=== PATIENT | female | born 1985 | race Caucasian/White ===

== ENCOUNTER 2020-12-08 16:40 | Emergency (ER) | payer OTHER, SELFPAY ==
[2020-12-08 16:45] VITALS: BP 141/88; PULSE 105; RESP 18; TEMP 36.8; O2SAT 96; BMI 27.1
--- NOTE | 2020-12-08 16:50 | ED_ITS ---
HPI - General Adult General Chief complaint: Allergic Reaction Stated complaint: Allergic reaction Time Seen by Provider: 12/08/20 16:50 Source: patient Mode of arrival: ambulatory Limitations: language barrier History of Present Illness HPI narrative: 35 yo healthy female presenting with allergic reaction after accidentally eating shrimp. 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 She reports her symptoms are palpitations, anxiety and hot ears. She denies SOB, wheezing, face or mouth swelling or tingling. She did not take any medications on arrival. MD complaint: allergic reaction Onset (ago): hour(s) (1) Location: head and chest Radiation: non-radiation Severity: moderate Quality: burning Pain Consistency: constant Relieving factors: cold therapy Exacerbating factors: none Associated symptoms: denies other symptoms Treatments prior to arrival: none Related Data Previous Rx's Medication Instructions Recorded diphenhydramine HCl [Benadryl 50 mg PO Q6H PRN #30 tab 12/08/20 Allergy] Allergies Allergy/AdvReac Type Severity Reaction Status Date / Time aspirin [ASA] Allergy Unknown UNKNOWN Verified 12/08/20 16:45 Penicillins [PENICILLINS] Allergy Unknown UNKNOWN Verified 12/08/20 16:45 Review of Systems Review of Systems: Constitutional: No Fever, No Chills ENT/Mouth: No sore throat, No Rhinorrhea, No Swallowing Difficulty Eyes: No Eye Pain, No Swelling, No Redness Cardiovascular: No Chest Pain, No SOB, +palpitations Respiratory: No Cough, No Sputum, No Wheezing, No dyspnea Gastrointestinal: No Nausea, No Vomiting, No Diarrhea, No abdominal Pain Musculoskeletal: No joint pain, No Myalgias Skin: No Skin Lesions, No rash Neuro: No Weakness, No Numbness, No Dizziness, No Headache Psych: + Anxiety/Panic [facility] Past Medical History Attestation statement: The following information was validated with the patient. Medical History (Updated 12/08/20 @ 18:47 by MORIAH Us) Healthy adult Physical Exam Vital Signs: Vital Signs: Last Vital Signs Temp 98.2 F 12/08/20 16:45 Pulse 86 12/08/20 18:48 Resp 16 12/08/20 18:48 BP 128/71 12/08/20 18:48 Pulse Ox 97 12/08/20 18:48 Body Mass Index 27.1 Appearance: Alert. Oriented X3. Slightly anxious on arrival. Eyes: Pupils equal, round and reactive to light. ENT: Pharynx normal. No mouth or tongue swelling. Left ear with mild erythema and warmth. Neck: Normal inspection. Neck supple. CVS: tachycardic, regular rhythm. Pulses normal. Respiratory: No respiratory distress. Breath sounds normal. No wheezing Skin: Skin warm and dry. Normal skin color. Normal skin turgor. No rashes or u rticaria. Extremities: No lower extremity edema. Neuro: Oriented X 3. Non-focal Course Course Course Narrative: Rapid medical assessment upon arrival to ER - 35 y/o healthy female presenting with acute onset of palpitations, anxiety and redness to ears after accidentally eating shrimp just [employer]. No SOB, wheezing, tongue or facial swelling. Tachycardic on arrival, lungs clear. Benadryl ordered. Reevaluation(s) Reevaluation #1: Symptoms significantly improved after PO benadryl. She was observed in the ER for 2+ hours. Tachycardia improved and she feels much better. She is stable for discharge. She has been counseled. Critical Care Time Critical Care Time Critical Care Time: No Discharge Plan Discharge Clinical Impression: Allergic reaction Qualifiers: Encounter type: initial encounter Qualified Code(s): T78.40XA - Allergy, unspecified, initial encounter Patient Disposition: Home, Self-Care Instructions: General Allergic Reaction (ED) Additional Instructions: DO NOT EAT SHRIMP. If you accidentally consume shrimp, recommend taking 50 mg Benadryl and seeking medical attention. Follow up with your doctor as needed. Prescriptions: New diphenhydramine HCl [Benadryl Allergy] 25 mg tablet 50 mg PO Q6H PRN (Reason: allergic reaction) Qty: 30 RF: 0 Print Language: Salvadorean
[2020-12-08] MEDS: diphenhydrAMINE HCL 25 MG TABLET 50 MG PO (17:32)
[2020-12-08 18:48] VITALS: BP 128/71; PULSE 86; RESP 16; O2SAT 97
== END 2020-12-08 19:06 | disposition home or self-care (01) ==
PROVIDERS: Emergency Provider Emergency Medicine
DX: T78.1XXA Other adverse food reactions, not elsewhere classified, initial encounter (principal); R00.2 Palpitations; I47.9 Paroxysmal tachycardia, unspecified; X58.XXXA Exposure to other specified factors, initial encounter
CPT/HCPCS: 99283; Q0163

== ENCOUNTER 2021-03-27 15:02 | Outpatient (REF) | payer OTHER, SELFPAY ==
[2021-03-27 15:31] LABS: COVID-19 Test Positive (Negative); IDNOW Serial# 55D5AD1C
== END 2021-03-27 15:03 | disposition home or self-care (01) ==
LOC: HO.LAB 15:02
PROVIDERS: Visit Provider Internal Medicine
DX: Z20.822 Contact with and (suspected) exposure to COVID-19 (principal)
CPT/HCPCS: 36415; 87635; C9803

== ENCOUNTER 2021-06-17 09:57 | Outpatient (REF) | payer OTHER, SELFPAY | END 2021-06-17 09:58 | disposition home or self-care (01) | LOC: HO.LAB 09:57 | PROVIDERS: PCP Internal Medicine; Visit Provider Internal Medicine | DX: Z20.822 Contact with and (suspected) exposure to COVID-19 (principal) | CPT/HCPCS: C9803; U0003; U0005 ==

== ENCOUNTER 2021-09-01 17:10 | Outpatient (REF) | payer OTHER, SELFPAY ==
[2021-09-01 17:19] LABS: Appearance Urine CLEAR; Color Urine YELLOW; Glucose Urine UA NEG (NEG); Leukocyte Esterase Urine NEG (NEG); Nitrite Urine NEG (NEG); Specific Gravity - Urine 1.025 (1.005-1.025); UACC Culture Trigger NO; Urine Blood 1+ (NEG); Urine Ketones NEG (NEG); Urine Protein NEG (NEG-TRACE)
[2021-09-01 17:27] LABS: Mucus Urine 1+ /LPF; Squamous Epithelial Cell Urine 1+ /LPF
[2021-09-01 17:29] LABS: Bacteria Urine TRACE /LPF; RBC Urine 0-2 /HPF (0); WBC Urine 0 /HPF (0-4)
== END 2021-09-01 17:11 | disposition home or self-care (01) ==
LOC: HO.LNP 17:10
PROVIDERS: Visit Provider Nurse Practitioner Family
DX: N89.8 Other specified noninflammatory disorders of vagina (principal)
CPT/HCPCS: 81001

== ENCOUNTER 2022-01-18 08:52 | Outpatient (REF) | payer OTHER, SELFPAY ==
[2022-01-18 15:13] LABS: CT PCR NOT DETECTED (Not Detect.); NG PCR NOT DETECTED (Not Detect.)
[2022-01-18 16:23] LABS: BV Int Neg Control Negative (Negative); BV Int Pos Control Positive (Positive)
== END 2022-01-18 08:53 | disposition home or self-care (01) ==
LOC: HO.LAB 08:52
PROVIDERS: PCP Internal Medicine; Visit Provider Obstetrics & Gynecology
DX: B37.3 Candidiasis of vulva and vagina (principal)
CPT/HCPCS: 87480; 87491; 87510; 87591; 87660

== ENCOUNTER 2022-02-05 15:29 | Outpatient (REF) | payer OTHER, SELFPAY ==
[2022-02-06 02:48] LABS: CT PCR NOT DETECTED (Not Detect.); NG PCR NOT DETECTED (Not Detect.)
[2022-02-06 14:21] LABS: BV Int Neg Control Negative (Negative); BV Int Pos Control Positive (Positive)
== END 2022-02-05 15:30 | disposition home or self-care (01) ==
LOC: HO.LAB 15:29
PROVIDERS: PCP Internal Medicine; Visit Provider Obstetrics & Gynecology
DX: B37.3 Candidiasis of vulva and vagina (principal)
CPT/HCPCS: 87480; 87491; 87510; 87591; 87660; 99212

== ENCOUNTER 2022-06-14 09:46 | Outpatient (REF) | payer OTHER, SELFPAY ==
[2022-06-14 12:54] LABS: Syphilis Screen Nonreactive (Nonreactive)
[2022-06-14 15:17] LABS: CT PCR NOT DETECTED (Not Detect.); NG PCR NOT DETECTED (Not Detect.)
[2022-06-15 07:05] LABS: HBsAGNum1 0.27 S/CO (0.00-0.99); HIV AB/AG Nonreactive (Nonreactive); HIV Num 1 0.06 S/CO (0.00-0.99); Hepatitis B Surface Antigen Negative (Negative); ~HepC Num1 0.07 S/CO (0.00-0.79); ~Hepatitis C Antibody Nonreactive (Nonreactive)
[2022-06-15 09:09] LABS: BV Int Neg Control Negative (Negative); BV Int Pos Control Positive (Positive)
== END 2022-06-14 09:47 | disposition home or self-care (01) ==
LOC: HO.LAB 09:46
PROVIDERS: PCP Internal Medicine; Visit Provider Obstetrics & Gynecology
DX: Z01.419 Encounter for gynecological examination (general) (routine) without abnormal findings (principal); Z11.3 Encounter for screening for infections with a predominantly sexual mode of transmission; Z11.4 Encounter for screening for human immunodeficiency virus [HIV]
CPT/HCPCS: 36415; 86780; 86803; 87340; 87389; 87480; 87491; 87510; 87591; 87660

== ENCOUNTER 2023-02-04 12:18 | Outpatient (REF) | payer OTHER, SELFPAY ==
[2023-02-04 14:15] LABS: Rheumatoid Factor < 13.0 IU/mL (<15.0)
== END 2023-02-04 12:19 | disposition home or self-care (01) ==
LOC: HO.LAB 12:18
PROVIDERS: PCP Internal Medicine; Visit Provider Nurse Practitioner Family
DX: M54.50 Low back pain, unspecified (principal)
CPT/HCPCS: 36415; 86431

== ENCOUNTER 2023-06-16 10:16 | Outpatient (AMB) | payer OTHER, SELFPAY ==
--- NOTE | 2023-06-16 10:18 | MHC.OFFVIS ---
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 Electronic Data Processing Auditor Required: Yes Electronic Data Processing Auditor Language: Hearing Officer Name: Nancy FRIEDMAN Information Interpreted: non-clinical & clinical Gift Consultant: Gift Consultant Present (Nancy) Allergies aspirin [ASPIRIN] Allergy (Unknown, Verified 06/16/23 10:22) HIVES, rash penicillin V Allergy (Unknown, Verified 06/16/23 10:22) rash Penicillins [PENICILLINS] Allergy (Unknown, Verified 06/16/23 10:22) HIVES Is last menstrual period known: Yes Last menstrual period: 04/23/23 Post menopausal: No HPI HPI Comments History of Present Illness Details Presenting for annual exam. No complaints. Last Pap/HPV was in 04/08 was negative [facility] Medical History Family history of diabetes mellitus Healthy adult Surgical History Hx of tubal ligation Previous section Family History Father Diabetes Mother Diabetes Hypertension Social History Housing: House Alcohol intake: never Patient Tobacco Use Status: Never used Tobacco e-Cigarette/Vaping Use: Never Used Second Hand Smoke Exposure: No service: No Current occupational status: employed Female Reproductive History Menstrual Age of Menarche: 13 Duration of menses: 6-7 days Date of last menstrual period: 04/23/23 control method: permanent sterilization Total pregnancies: 2 Full term: 2 Number of Living Children: 2 Date of last pap smear: 03/21/19 (negative) Review of Systems Const All systems reviewed & are unremarkable except as noted in HPI and below Card Reports as per HPI Resp Reports as per HPI GI Reports as per HPI and Reports no additional complaints Reports as per HPI Physical Exam Vital Signs: Last Vital Signs BP 106/70 06/16/23 10:19 BMI result Body Mass Index 28.9 Const General: cooperative, healthy appearing and comfortable Chest Chest palpation & inspection: normal inspection of the chest and normal palpation of entire chest wall Breast/axilla inspection: normal inspection of the breasts and normal inspection of the axillae Breast/axilla palpation: normal palpation of the breasts, normal palpation of the axillae and no axillary lymphadenopathy Resp Effort & Inspection: normal respiratory effort Auscultation: clear to auscultation bilaterally Percussion: percussion normal Cardio Palpation: normal PMI Rate: regular rate Rhythm: regular rhythm Heart sounds: no murmurs and no rubs Peripheral pulses: Peripheral pulses 2+ throughout GI Inspection: Yes normal to inspection Palpation (GI): Soft to palpation, nontender, no guarding, not rigid and No hepatosplenomegaly present Percussion: Yes normal to percussion Auscultation: normal bowel sounds Rectal Exam - Female: deferred General: Yes bladder normal to palpation External Female Exam: No lesion Speculum Exam - Vagina: normal appearance of the vagina, normal palpation, normal vaginal discharge and not erythematous Speculum Exam - Cervix: normal appearance of the cervix and normal palpation Bimanual exam- vagina & uterus: normal bimanual exam, normal palpation, uterine size normal, bladder normal to palpation, consistency normal and normal palpation Bimanual Exam- Adnexa, other: normal adnexae, no masses and no tenderness Assessment & Plan Assessment & Plan (1) Well woman exam: Code(s): Z01.419 - Encounter for gynecological examination (general) (routine) without abnormal findings Plan: No Cotesting indicated this year. Counseled the patient about the recommended dietary allowance of 1000 mg of Calcium & 600 IU of vitamin D. The patient was instructed to perform monthly self-breast exams and to schedule an annual exam in a year; All questions answered and the patient verbalized understanding. Instructed the patient to schedule annual exam in a year Coding Level of Care Code Est Pt Prev Care 18-39y(13643) Diagnoses Well woman exam Z01.419
[2023-06-16 10:19] VITALS: BP 106/70; BMI 28.9
== END 2023-06-16 10:33 | disposition home or self-care (01) ==
LOC: HO.HWS 10:16
PROVIDERS: PCP Internal Medicine; Visit Provider Obstetrics & Gynecology
DX: Z01.419 Encounter for gynecological examination (general) (routine) without abnormal findings (principal)
CPT/HCPCS: 99395

== ENCOUNTER → 2023-06-16 10:16 | Outpatient (BNVA) | payer OTHER, SELFPAY | PROVIDERS: PCP Internal Medicine; Visit Provider Obstetrics & Gynecology ==

== ENCOUNTER 2024-01-16 17:41 | Emergency (ER) | payer OTHER, SELFPAY ==
[2024-01-16 17:58] VITALS: BP 164/80; PULSE 96; RESP 18; TEMP 36.7; O2SAT 98; BMI 26.9
--- NOTE | 2024-01-16 18:12 | ED_ITS ---
HPI - Allergic Reaction General Chief complaint: Allergic Reaction Stated complaint: allergic reaction Time Seen by Provider: 01/16/24 17:51 Source: patient Mode of arrival: ambulatory Limitations: no limitations History of Present Illness HPI narrative: 38-year-old female history of allergic reaction patient ate a sesame seeds bar at 17:00 when she started to have throat itching, felt tightness in her throat a nd difficulty breathing with wheezing, patient took 50 mg of Benadryl at home then drove herself to the emergency department, while waiting in the emergency department to be seen symptoms started to improve and resolve, no itching, no rash, no fever, no chills, no CP, no SOB. Related Data Previous Rx's Medication Instructions Recorded epinephrine 0.3 mg/0.3 mL 0.3 mg (0.3 mL) IM Q4H PRN 01/16/24 injection, auto-injector (EpiPen anaphylaxis #2 ea 2-Jas) Allergies Allergy/AdvReac Type Severity Reaction Status Date / Time aspirin [ASPIRIN] Allergy Unknown HIVES, rash Verified 06/16/23 10:22 penicillin V Allergy Unknown rash Verified 06/16/23 10:22 Penicillins [PENICILLINS] Allergy Unknown HIVES Verified 06/16/23 10:22 Review of Systems Review of Systems: All other systems are reviewed and are negative Constitutional: Reports as per HPI and Reports no additional constitutional complaints Eyes: Reports as per HPI and Reports no additional eye complaints Reports system reviewed and no additional complaints, except as documented Cardiovascular: Reports as per HPI and Reports no additional cardiovascular complaints Respiratory: Reports as per HPI and Reports no additional respiratory complaints Gastrointestinal: Reports as per HPI and Reports no additional gastrointestinal complaints Genitourinary: Reports no additional female genitourinary complaints Musculoskeletal: Reports no additional musculoskeletal complaints Skin/Breast: Reports system reviewed and no additional complaints, except as docu Psychiatric: Reports no additional psychiatric complaints Endocrine: Reports no additional endocrine complaints Hematologic/Lymphatic: Reports no additional hematologic/lymphatic complaints Allergic/Immunologic: Reports no additional allergic/immunologic complaints Reports system reviewed and no additional complaints, except as documented and Reports Abnormal speech present [facility] Past Medical History Medical History Family history of diabetes mellitus Healthy adult Surgical History Hx of tubal ligation Previous section Family History Family History Father Diabetes Mother Diabetes Hypertension Social History Social History Housing: House Alcohol intake: never Patient Tobacco Use Status: Never used Tobacco e-Cigarette/Vaping Use: Never Used Second Hand Smoke Exposure: No service: No Current occupational status: employed Physical Exam ED Vital Signs: Vital Signs - 24 hr 01/16/24 17:58 Temperature 98.1 F Pulse Rate 96 Respiratory Rate 18 Blood Pressure 164/80 H Pulse Oximetry 98 Oxygen Delivery Method Room Air BMI result Body Mass Index 26.9 Vital signs have been reviewed and appear to be correct. Blood pressure elevated. Heart rate normal. Respiratory rate normal. Temperature normal. Oxygen saturation normal. Appearance: Alert. Oriented X3. No acute distress. Head: Normal external exam. Normocephalic. Atraumatic. No Stanley signs noted. No raccoon eyes noted Eyes: PERRLA. EOMI. Conjunctiva and sclera normal. Eyelids normal. ENT: TM's Normal. Pharynx normal. Uvula midline. Moist mucous membranes. No trismus noted. No drooling noted. No muffled voice noted. Neck: Normal inspection. Neck supple. FROM. No adenopathy. Thyroid Normal. No meningeal signs. No neck mass noted. CVS: Normal heart rate and rhythm. Heart sound normal. No murmurs noted. Pulses normal throughout. Respiratory: No respiratory distress. Painless inspiration. Breath sounds normal. No wheezes/rales/rhonchi noted. Chest nontender. No accessory muscle usage noted or decreased air movement noted. Abdomen: Soft and nontender. Bowel sounds normal in all 4 quadrants. No distention noted. No organomegaly noted. No visible injury noted. Back: No CVA tenderness. Full range of motion noted. Skin: Skin warm and dry. Normal skin color. Normal skin turgor. No rashes/lesions/lacerations noted. Extremities: No lower extremity edema. Extremities exhibit normal range of motion. Extremities nontender. Neuro: Oriented X 3. Cranial nerve exam: II-XII are grossly intact No motor deficit. No sensory deficit. Reflexes normal. Course Reevaluation(s) Reevaluation #1: Received IV fluids, Solu-Medrol, Pepcid, patient's symptoms has improved, no SOB, no throat tightness. Time: 20:00 Medical Decision Making Differential Diagnosis Differential Diagnoses: The differential diagnosis associated with the presentation includes ( acute allergic reaction, airway compromise, anaphylactic shock.) Admission/Observation Consideration of admission/observation: Escalation of care including admission/observation considered Discharge Plan Discharge Clinical Impression: Allergic reaction Patient Disposition: Home, Self-Care Instructions: General Allergic Reaction (ED) Additional Instructions: Avoid eating any sesame seed in the future and added to your allergy list to avoid. Prescriptions: New epinephrine [EpiPen 2-Jas] 0.3 mg/0.3 mL auto-injector 0.3 mg IM Q4H PRN (Reason: anaphylaxis) Qty: 2 0RF Referrals: Fannie Raya MD [Primary Care Provider] -
[2024-01-16] MEDS: 0.9 % Sodium Chloride 1,000 ML 999 ML IV (18:21)
[2024-01-16] MEDS: methylPREDNISolone Sod Succ 125 MG/2 ML VIAL IVPUSH (18:21)
[2024-01-16] MEDS: Famotidine/PF 20 MG/2 ML VIAL IVPUSH (18:23)
[2024-01-16 20:12] LABS: Influenza A PCR NEGATIVE (Negative); Influenza B PCR NEGATIVE (Negative); Resp Syncy Virus RNA Qual PCR NEGATIVE (Negative); SARS COV2 PCR INHOUSE NEGATIVE (Negative)
[2024-01-16 20:16] VITALS: BP 114/74; PULSE 88; RESP 17; O2SAT 97
== END 2024-01-16 20:39 | disposition home or self-care (01) ==
PROVIDERS: Emergency Provider Emergency Medicine; PCP Internal Medicine
DX: T78.40XA Allergy, unspecified, initial encounter (principal); X58.XXXA Exposure to other specified factors, initial encounter; Z11.52 Encounter for screening for COVID-19; Z20.828 Contact with and (suspected) exposure to other viral communicable diseases; Z88.0 Allergy status to penicillin; Z88.6 Allergy status to analgesic agent
CPT/HCPCS: 0241U; 96374; 96375; 99284; J2930

== ENCOUNTER 2024-06-06 13:50 | Outpatient (REF) | payer OTHER, SELFPAY | END 2024-06-06 13:51 | disposition home or self-care (01) | LOC: HO.LAB 13:50 | PROVIDERS: Absent Provider Internal Medicine; PCP Internal Medicine; Visit Provider Internal Medicine | DX: T78.40XA Allergy, unspecified, initial encounter (principal) | CPT/HCPCS: 36415; 86003 ==

== ENCOUNTER 2024-08-07 11:03 | Outpatient (AMB) | payer OTHER, SELFPAY ==
[2024-08-07 11:24] VITALS: BP 122/74; BMI 25.5
--- NOTE | 2024-08-07 11:24 | A.OFFVIS_ITS ---
Vital Signs 08/07/24 11:24 Height 5 ft 5 in Weight 153 lb BMI 25.5 BP 122/74 Intake Visit Reasons: Annual Donkey Engine Firer/Fireman Required: Yes Donkey Engine Firer/Fireman Language: Machine Stemmer Services: Donkey Engine Firer/Fireman Present (in person) Donkey Engine Firer/Fireman Name: Nancy FRIEDMAN Information Interpreted: non-clinical & clinical Protective Signal Repairer: Protective Signal Repairer Present (Nancy FRIEDMAN) Accompanied by: Self / Same As Patient Allergies aspirin [ASPIRIN] Allergy (Unknown, Verified 08/07/24 11:28) HIVES, rash penicillin V Allergy (Unknown, Verified 08/07/24 11:28) rash Penicillins [PENICILLINS] Allergy (Unknown, Verified 08/07/24 11:28) HIVES Is last menstrual period known: Yes HPI Comments Details: Presenting for annual exam. Complaining of right tender breast lump no associated nipple Last Pap/HPV was negative in 03/09 [facility] Medical History Family history of diabetes mellitus Healthy adult Surgical History Hx of tubal ligation Previous section Family History Father Diabetes Mother Diabetes Hypertension Social History Housing: House Alcohol intake: never Patient Tobacco Use Status: Never used Tobacco e-Cigarette/Vaping Use: Never Used Second Hand Smoke Exposure: No service: No Current occupational status: employed Female Reproductive History Menstrual Age of Menarche: 13 control method: permanent sterilization Total pregnancies: 2 Full term: 2 Number of Living Children: 2 Date of last pap smear: 03/20/19 Review of Systems Const All systems reviewed & are unremarkable except as noted in HPI and below Card Reports as per HPI Resp Reports as per HPI GI Reports as per HPI and Reports no additional complaints Reports as per HPI Physical Exam Vital Signs: Last Vital Signs BP 122/74 08/07/24 11:24 BMI result Body Mass Index 25.5 Const General: cooperative, healthy appearing and comfortable Chest Chest palpation & inspection: normal inspection of the chest and normal palpation of entire chest wall Breast/axilla inspection: normal inspection of the breasts and normal inspection of the axillae Breast/axilla palpation: normal palpation of the breasts (L breast wnl, R breast tender lump 7 cm from the nipple @ 5 o'clock), normal palpation of the axillae and no axillary lymphadenopathy Resp Effort & Inspection: normal respiratory effort Auscultation: clear to auscultation bilaterally Percussion: percussion normal Cardio Palpation: normal PMI Rate: regular rate Rhythm: regular rhythm Heart sounds: no murmurs and no rubs Peripheral pulses: Peripheral pulses 2+ throughout GI Inspection: Yes normal to inspection Palpation (GI): Soft to palpation, nontender, no guarding, not rigid and No hepatosplenomegaly present Percussion: Yes normal to percussion Auscultation: normal bowel sounds Rectal Exam - Female: deferred General: Yes bladder normal to palpation External Female Exam: No lesion Speculum Exam - Vagina: normal appearance of the vagina, normal palpation, normal vaginal discharge and not erythematous Speculum Exam - Cervix: normal appearance of the cervix and normal palpation Bimanual exam- vagina & uterus: normal bimanual exam, normal palpation, uterine size normal, bladder normal to palpation, consistency normal and normal palpation Bimanual Exam- Adnexa, other: normal adnexae, no masses and no tenderness Assessment & Plan Assessment & Plan (1) Well woman exam: Code(s): Z01.419 - Encounter for gynecological examination (general) (routine) without abnormal findings Category: Medical Plan: Cotesting done. Counseled the patient about the recommended dietary allowance of 1000 mg of Calcium & 600 IU of vitamin D. The patient was instructed to perform monthly self-breast exams and to schedule an annual exam in a year; All questions answered and the patient verbalized understanding. Instructed the patient to schedule annual exam in a year (2) Breast lump on right side at 5 o'clock position: Comment: L breast wnl, R breast tender lump 7 cm from the nipple @ 5 o'clock Code(s): N63.14 - Unspecified lump in the right breast, lower inner quadrant Category: Medical Plan: Discussed with the patient the finding on Breast exam (breast lump) .The d ifferential diagnosis includes but not limited to lump/cyst/pre cancer/cancer or dense breast tissue. The work up includes breast US and diagnostic mammogram and referred the patient for surgical breast consult. Orders: Orders MM tomosynthesis diagnostic BI Today N63.14 - Unspecified lump in the right breast, lower inner quadrant US breast RT complete Today N63.14 - Unspecified lump in the right breast, lower inner quadrant Coding Level of Care Code Est Pt Prev Care 18-39y(67520) Diagnoses Well woman exam Z01.419 Breast lump on right side at 5 o'clock position N63.14
== END 2024-08-07 12:27 | disposition home or self-care (01) ==
LOC: HO.HWS 11:03
PROVIDERS: PCP Internal Medicine; Visit Provider Obstetrics & Gynecology
DX: Z01.419 Encounter for gynecological examination (general) (routine) without abnormal findings (principal); N63.14 Unspecified lump in the right breast, lower inner quadrant
CPT/HCPCS: 99395

== ENCOUNTER 2024-08-07 11:03 | Outpatient (REF) | payer OTHER, SELFPAY ==
[2024-08-10 07:03] LABS: HPV mRNA E6/E7 Not Detected (Not Detected)
== END 2024-08-07 11:04 | disposition home or self-care (01) ==
LOC: HO.LNP 11:03
PROVIDERS: PCP Internal Medicine; Visit Provider Obstetrics & Gynecology
DX: Z01.419 Encounter for gynecological examination (general) (routine) without abnormal findings (principal)
CPT/HCPCS: 87624; 88175

== ENCOUNTER 2024-09-10 13:35 | Outpatient (REF) | payer OTHER, SELFPAY ==
--- NOTE | ~2024-09-10 | US_ITS ---
EXAMINATION: MM DIAGNOSTIC DIGITAL BREAST TOMOSYNTHESIS, BILATERAL US BREAST LIMITED, RIGHT MAMMOGRAPHY: CLINICAL INFORMATION: 39-year-old female, baseline exam, complaining of palpable lump right breast approximately 5:00 axis, middle one third. Patient states currently she cannot feel it . No significant family history of breast CA. No history of surgeries. COMPARISON: Mammography: None. Baseline exam. TECHNIQUE: Digital breast tomosynthesis is performed in both the craniocaudal and mediolateral oblique views along with computer-aided detection (CAD). Synthesized 2D images are generated from the tomosynthesis. In addition to standard views, spot 3-D compression right MLO x2, and right CC x1 were obtained. FINDINGS: There are scattered areas of fibroglandular density (ACR BI-RADS breast composition Category b). Density borders on Category C. There are no suspicious masses, suspicious grouped calcifications, or areas of architectural distortion in either breast. The parenchymal pattern is stable from prior exams. There is no skin or axillary abnormality. There is no mammographic abnormality in the area marked by the patient with a BB, right breast middle depth proximally 5:00 axis to correlate with the reported palpable area of concern. This will be evaluated with ultrasound. ULTRASOUND: CLINICAL INFORMATION: As above COMPARISON: None TECHNIQUE: Targeted sonographic evaluation was performed using a high frequency linear transducer. Attention was given to the lower inner quadrant of the right breast, to cover the region of palpable concern. Selected archived documentation. FINDINGS: RIGHT BREAST: There is a mixture of fatty and fibroglandular tissue. No suspicious mass is seen. There is no pathologic acoustic shadowing. There is no cystic or architectural abnormality. Specifically, there's no ultrasonographic abnormality in the region of palpable concern right breast lower inner quadrant. US/US breast RT limited mamm only IMPRESSION: There are no findings suspicious for malignancy in either breast. There is no mammographic or ultrasonographic abnormality to correlate with the area of palpable concern right breast lower inner quadrant. Recommend clinical management and follow-up. -Otherwise, recommend the patient resume routine annual screening. OVERALL ASSESSMENT: Mammography: BI-RADS 1 - Negative Ultrasound: BI-RADS 1 - Negative RECOMMENDATION: 1 year F/U This patient's information was entered into a reminder system with a target due date for their next mammogram. Electronically signed by: Shai Melendez MD 09/10/2024 03:50 PM EDT RP
== END 2024-09-10 13:36 | disposition home or self-care (01) ==
LOC: HO.MAMMO 13:35
PROVIDERS: PCP Internal Medicine; Visit Provider Internal Medicine
DX: N63.14 Unspecified lump in the right breast, lower inner quadrant (principal)
CPT/HCPCS: 76642; 77062; 77066

== ENCOUNTER → 2024-09-10 14:00 | Outpatient (BNV) | payer OTHER, SELFPAY | PROVIDERS: PCP Internal Medicine; Visit Provider Radiology Diagnostic Radiology | DX: R92.311 Mammographic fatty tissue density, right breast (principal); R92.321 Mammographic fibroglandular density, right breast | CPT/HCPCS: 76642; 77062; 77066 ==

== ENCOUNTER 2024-09-17 10:48 | Outpatient (AMB) | payer OTHER, SELFPAY ==
--- NOTE | 2024-09-17 11:08 | AM.OFFWIN_ITS ---
Intake Vital Signs 09/17/24 11:09 Height 5 ft 5 in Weight 158 lb BMI 26.3 BP 120/64 Blood Pressure Location Rt brachial Position Sitting Pulse 80 Pulse Source Pulse Oximeter Pulse Oximetry (%) 98 Oxygen Delivery Method Room Air Intake Visit Reasons: EP Lower back pain Intake Note: Patient here for lower back pain that is radiating up the back which has been present for about 1 month. Patient Tobacco Use Status: Never used Tobacco Allergies aspirin [ASPIRIN] Allergy (Unknown, Verified 09/17/24 11:10) HIVES, rash penicillin V Allergy (Unknown, Verified 09/17/24 11:10) rash Penicillins [PENICILLINS] Allergy (Unknown, Verified 09/17/24 11:10) HIVES Do you need a note to return to daycare/school/sports/work: Yes HPI EP Lower back pain HPI Details This note is constructed using voice recognition software. While every effort has been made to ensure accuracy, ela teacher errors may have been included. The patient is a 39 year old female who presents to the clinic today with low back pain with radiation up the back for the past month intermittently. She has been taking Tylenol and ice with little effect. She denies any particular injury or over work. She denies loss of control of her bowel or bladder. She denies numbness and tingling into the legs. [facility] Medical History Family history of diabetes mellitus Healthy adult Surgical History Hx of tubal ligation Previous section Family History Father Diabetes Mother Diabetes Hypertension Social History Housing: House Alcohol intake: never Patient Tobacco Use Status: Never used Tobacco e-Cigarette/Vaping Use: Never Used Second Hand Smoke Exposure: No service: No Current occupational status: employed Female Reproductive History Menstrual Age of Menarche: 13 Review of Systems Const All systems reviewed & are unremarkable except as noted in HPI and below Physical Exam Vital Signs: Last Vital Signs Pulse 80 09/17/24 11:09 BP 120/64 09/17/24 11:09 Pulse Ox 98 09/17/24 11:09 Oxygen Delivery Method Room Air 09/17/24 11:09 BMI result Body Mass Index 26.3 Const General: cooperative, healthy appearing, comfortable, no acute distress and well developed Orientation/consciousness: patient oriented x3 Limitations: no limitations Resp Effort & Inspection: normal respiratory effort and able to speak in complete sentences Back/Spine/Pelvis Other: Bilateral lumbar tenderness, paraspinal, with increased muscle bulging on the left paraspinal muscles. Lateral rotation, flexion and extension all preserved. Negative SLR, negative well SLR. No ecchymosis, erythema, edema. Distal neurovascular exam intact. Strength 5/5. Skin General skin exam: no rashes or lesions noted Neuro General: patient oriented x3 Extrem General: Yes normal to inspection Assessment & Plan Assessment & Plan (1) Low back pain: Code(s): M54.50 - Low back pain, unspecified Qualifiers: Chronicity: unspecified Back pain laterality: bilateral Sciatica presence: without sciatica Qualified Code(s): M54.50 - Low back pain, unspecified Plan: Advised continuation of NSAIDs, we will add muscle relaxer for relief. 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 Consideration of heat instead of ice, and topical muscle rubs. Advised follow up with worsening symptoms or failure to resolve. May benefit from physical therapy with ongoing symptoms. Plan See above for full details and plan. Medications: New cyclobenzaprine 5 mg PO BEDTIME 7 days PRN 7 tabs 0RF Muscle Spasm Coding Level of Care Code Est Pt Level 3 (39016) Diagnoses Bilateral low back pain without sciatica, unspecified chronicity M54.50 Chronicity: unspecified Back pain laterality: bilateral Sciatica presence: without sciatica
[2024-09-17 11:09] VITALS: BP 120/64; PULSE 80; O2SAT 98; BMI 26.3
== END 2024-09-17 11:36 | disposition home or self-care (01) ==
PROVIDERS: PCP Internal Medicine; Visit Provider Registered Nurse
DX: M54.50 Low back pain, unspecified (principal)

== ENCOUNTER → 2024-09-17 10:48 | Outpatient (BNVA) | payer OTHER, SELFPAY | PROVIDERS: PCP Internal Medicine; Visit Provider Registered Nurse ==

== ENCOUNTER 2024-09-18 09:52 | Outpatient (AMB) | payer OTHER, SELFPAY ==
--- NOTE | 2024-09-18 09:55 | A.OFFVIS_ITS ---
Vital Signs 09/18/24 10:01 Height 5 ft 5 in Weight 158 lb BMI 26.3 BP 115/70 Blood Pressure Location Rt brachial Position Sitting Pulse 75 Intake Visit Reasons: Lump~ Rt breast Intake Note: Patient referred by Dr. Sierra for lump on Rt breast. Present for 1month. Thinks it has resolved. No longer feels it. Rt br US & MM: 09-10-2024. Developmental Electronics Assembler Required: Yes Developmental Electronics Assembler Name: Jessy SchulzAyanIDALIA Accompanied by: Self / Same As Patient Allergies aspirin [ASPIRIN] Allergy (Unknown, Verified 09/18/24 10:00) HIVES, rash penicillin V Allergy (Unknown, Verified 09/18/24 10:00) rash Penicillins [PENICILLINS] Allergy (Unknown, Verified 09/18/24 10:00) HIVES Medication List - Last Reconciled 09/18/24 by Rc Cazares MD cyclobenzaprine 5 mg PO BEDTIME PRN 7 days epinephrine (EpiPen 2-Jas) 0.3 mg (0.3 mL) IM Q4H PRN HPI Comments Details: Patient presents for evaluation of her right breast. She noticed a mass/lump in the superficial area of the right breast in July. She had a workup for this including sonogram and mammogram which were negative. In the meantime, numbness she presents for follow up, she says that the lesion has completely resolved, this appeared. Family history negative for any breast issues. Patient has no prior history of any breast problems. Chart was reviewed and patient evaluated [facility] Medical History Family history of diabetes mellitus Healthy adult Surgical History Hx of tubal ligation Previous section Family History Father Diabetes Mother Diabetes Hypertension Social History Housing: House Alcohol intake: never Patient Tobacco Use Status: Never used Tobacco e-Cigarette/Vaping Use: Never Used Second Hand Smoke Exposure: No service: No Current occupational status: employed Female Reproductive History Menstrual Age of Menarche: 13 Physical Exam Vital Signs: Last Vital Signs Pulse 75 09/18/24 10:01 BP 115/70 09/18/24 10:01 BMI result Body Mass Index 26.3 Chest Other: Bilateral breast exam demonstrates no obvious mass, discharge, skin changes. Bilateral supraclavicular axillary and periclavicular areas were negative for adenopathy. GI Other: Abdomen mildly corpulent, soft, benign Assessment & Plan Assessment & Plan (1) Breast lump on right side at 5 o'clock position: Comment: L breast wnl, R breast tender lump 7 cm from the nipple @ 5 o'clock Code(s): N63.14 - Unspecified lump in the right breast, lower inner quadrant Category: Surgical Plan: At present, will treat the patient conservatively. She will see me in 1 year's time proceeded by bilateral screening mammograms. She is encouraged to do occasional/monthly breast self exams. All questions answered. Orders: Orders MM screening mammo BI 11 Months N63.14 - Unspecified lump in the right breast, lower inner quadrant Coding Level of Care Code New Pt Level 4 (92952) Diagnoses Breast lump on right side at 5 o'clock position N63.14
[2024-09-18 10:01] VITALS: BP 115/70; PULSE 75; BMI 26.3
== END 2024-09-18 10:05 | disposition home or self-care (01) ==
LOC: HO.HGS 09:53
PROVIDERS: PCP Internal Medicine; Referring Provider Obstetrics & Gynecology; Visit Provider Surgery
DX: N63.14 Unspecified lump in the right breast, lower inner quadrant (principal)
CPT/HCPCS: 99204

== ENCOUNTER → 2024-09-18 09:52 | Outpatient (BNVA) | payer OTHER, SELFPAY | PROVIDERS: PCP Internal Medicine; Referring Provider Obstetrics & Gynecology; Visit Provider Surgery ==

== ENCOUNTER 2024-11-22 10:38 | Outpatient (REF) | payer OTHER, SELFPAY ==
--- NOTE | ~2024-11-22 | XR_ITS ---
CLINICAL HISTORY: M54.50 - Low back pain, unspecified 3 views lumbar spine Comparison: None Findings: Normal vertebral body alignment. No acute fractures or dislocation. No significant degenerative change. IMPRESSION: No acute findings. This document has been electronically signed by: Roberto Hinson MD on 11/23/2024 07:23:26
[2024-11-22 11:46] LABS: MANUAL DIFF FLAG NO
[2024-11-22 12:03] LABS: Basophils Percent Auto 0.4 % (0-2); Eosinophils Absolute Auto 0.3 X10*3/uL (0.0-0.4); Eosinophils Percent Auto 3.1 % (0-4); Hematocrit 35.2 % (37.0-47.0); Imm Gran Abs Auto 0.03 X10*3/uL (0.00-0.03); Imm Gran Pct Auto 0.4 % (0.0-0.4); Lymphocytes Absolute Auto 2.9 X10*3/uL (1.2-4.9); Lymphocytes Percent Auto 35.4 % (20-40); Mean Corpuscular HGB Conc 31.3 g/dl (31.0-35.0); Mean Corpuscular Hemoglobin 24.2 pg (27.0-33.0); Mean Corpuscular Volume 77.5 fL (80.0-98.0); Mean Platelet Volume 9.3 fL (9.4-12.3); Monocytes Absolute Auto 0.8 X10*3/uL (0.1-1.2); Monocytes Percent Auto 9.5 % (2-11); Neutrophils Absolute Auto 4.2 x10*3/uL (2.0-8.3); Neutrophils Percent Auto 51.2 % (45-73); Platelet Count 380 X10*3/uL (160-400); Red Blood Count 4.54 X10*6/uL (4.20-5.50); Red Cell Distribution Width 16.7 % (11.0-16.0); White Blood Count 8.1 X10*3/uL (4.8-10.8)
[2024-11-22 12:31] LABS: Alanine Aminotransferase 21 U/L (0-31); Albumin Level 4.2 g/dL (3.5-5.0); Alkaline Phosphatase 81 U/L (39-117); Anion Gap 11 (12-20); Aspartate Amino Transferase 18 U/L (5-31); Bilirubin Total 0.3 mg/dL (0.0-1.0); Blood Urea Nitrogen 6 mg/dL (9-16); Calcium 9.1 mg/dL (8.4-10.2); Carbon Dioxide 25 mmol/L (22-29); Chloride 107 mmol/L (96-108); Estimated Glomerular Filt Rate > 60; Glucose Random 84 mg/dL (60-115); Potassium 3.8 mmol/L (3.3-5.1); Sodium 139 mmol/L (135-145)
[2024-11-22 12:51] LABS: Thyroid Stimulating Hormone 1.82 uIU/mL (0.32-4.0)
== END 2024-11-22 10:39 | disposition home or self-care (01) ==
LOC: HO.LAB 10:38
PROVIDERS: PCP Internal Medicine; Visit Provider Internal Medicine
DX: E04.9 Nontoxic goiter, unspecified (principal); M54.50 Low back pain, unspecified
CPT/HCPCS: 36415; 72100; 80053; 84439; 84443; 85025; 90471; 96127

== ENCOUNTER 2024-11-22 10:38 | Outpatient (AMB) | payer OTHER, SELFPAY ==
--- NOTE | 2024-11-22 10:46 | MHC.PC.OV ---
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 Required: No Accompanied by: Self / Same As Patient Allergies aspirin [ASPIRIN] Allergy (Unknown, Verified 11/22/24 10:57) HIVES, rash penicillin V Allergy (Unknown, Verified 11/22/24 10:57) rash Penicillins [PENICILLINS] Allergy (Unknown, Verified 11/22/24 10:57) HIVES Medication List - Last Reconciled 11/22/24 by Fannie Bustillos MD epinephrine (EpiPen 2-Jas) 0.3 mg (0.3 mL) IM Q4H PRN Tobacco use date assessed: 11/22/24 Dental Screening Dental Screen Date: 11/22/24 Did you have a dental visit in the last 12 months?: Yes Did you have a dental problem in the last 6 months where you did not have access to dental care?: No Was dental information given to patient?: Patient has dentist HPI HPI Comments History of Present Illness Details The patient is a 39-year-old female presenting with chronic back pain. She reports a longstanding history of intermittent discomfort primarily in the lumbar region, which exacerbated approximately three months ago. The pain is described as a burning sensation and is notably positioned in the lower back, predominantly on the right side. There is occasional radiation to the front of the left side, although there is no associated numbness or incontinence. The patient indicates that previously, ibuprofen provided some relief; however, the current episodes have been unresponsive to this [id number] medication. In one instance, she sought evaluation at an urgent care facility due to an intensification of symptoms, and was prescribed an anti-inflammatory, which did not alleviate the pain. No imaging studies or diagnostic tests have been performed to date. The pain sometimes causes her to become bent over, temporarily affecting her ability to stand upright. [facility] Medical History (Updated 11/22/24 @ 11:06 by Fannie Bustillos MD) Family history of diabetes mellitus Healthy adult Surgical History Hx of tubal ligation Previous section Family History Father Diabetes Mother Diabetes Hypertension Social History Housing: House Alcohol intake: never Patient Tobacco Use Status: Never used Tobacco e-Cigarette/Vaping Use: Never Used Second Hand Smoke Exposure: No service: No Current occupational status: employed Cognitive needs: No Hearing needs: No Vision needs: No Female Reproductive History Menstrual Age of Menarche: 13 Questionnaire PHQ-9 Over the last 2 weeks, how often have you been bothered by any of the following problems? 1. Little interest or pleasure in doing things: not at all 2. Feeling down, depressed, or hopeless: not at all 3. Trouble falling or staying asleep, or sleeping too much: not at all 4. Feeling tired or having little energy: not at all 5. Poor appetite or overeating: not at all 6. Feeling bad about yourself - or that you are a failure or have let yourself or your family down: not at all 7. Trouble concentrating on things, such as reading the newspaper or watching television: not at all 8. Moving or speaking so slowly that other people could have noticed. Or the opposite - being so fidgety or restless that you have been moving around a lot more than usual: not at all 9. Thoughts that you would be better off or of hurting yourself in some way: not at all Total score: 0 Depression Screening Interpretation: Negative Depression Screening Done: Yes 77260 - PHQ-9 Billing: Yes Source: Developed by Drs. Nolberto Platt, Tamia Saldivar, Dixon Bauer and colleagues, with an educational michael from [employer]. Thrive Questionnaire Date Thrive assessed: 11/22/24 I am a: Patient What is your living situation today?: I have a steady place to live Within the past 12 months, did the food you bought not last and you didn't have the money to get more?: Never true Within the past 12 months, did you worry whether your food would run out before you got money to buy more?: Never true Do you have trouble paying for medicines?: No Do you have trouble getting transportation to medical appointments?: No Do you have trouble paying your heating and electricity bill?: No Do you have trouble taking care of your child, family member or friend?: No Do you have trouble with day-to-day activities such as bathing, preparing meals, shopping, managing finances, etc.?: No Are you currently unemployed and looking for a job?: No Are you interested in more education?: No Please select the resources that you would like help with: None Currently or been in a relationship where the following occur: No concerns reported THRIVE Score: 0 AUDIT C Alcohol Use Questionnaire (AUDIT-C) 1. How often do you have a drink containing alcohol?: Monthly or less 2. How many drinks containing alcohol do you have on a typical day when you are drinking?: 1 or 2 3. How often do you have six or more drinks on one occasion?: Never Total Score: 1 Score Reviewed/Action Taken: No IKE-7 AMB Questionnaire IKE-7 Date IKE - 7 assessed: 11/22/24 Feeling nervous, anxious, or on edge: 0 = Not at all Not being able to stop or control worryin = Not at all Worrying too much about different things: 0 = Not at all Trouble relaxin = Not at all Being so restless that it is hard to sit still: 0 = Not at all Becoming easily annoyed or irritable: 0 = Not at all Feeling afraid as if something awful might happen: 0 = Not at all Total IKE-7 score (0-4 normal; 5-9 mild; 10-14 moderate; 15-21 severe): 0 Source: Developed by Drs. Nolberto Platt, Tamia Saldivar, Dixon Bauer and colleagues, with an educational michael from [employer]. IKE-7 Assessment Billing IKE-7 Assessment Tool: IKE-7 Assessment 34169 Review of Systems Const Details: - Neurological: Denies numbness or tingling. - Genitourinary: Denies loss of bladder or bowel control. - Musculoskeletal: Reports back pain Physical exam (Primary Care) Vital Signs: Last Vital Signs Pulse 80 11/22/24 10:48 BP 122/80 11/22/24 10:48 Pulse Ox 99 11/22/24 10:48 Oxygen Delivery Method Room Air 11/22/24 10:48 BMI result Body Mass Index 26.7 Tobacco/Smoking Status: Tobacco use Status Tobacco use date assessed 11/22/24 11/22/24 10:53 Patient Tobacco Use Status Never used Tobacco 11/22/24 10:53 e-Cigarette/Vaping Use Never Used 11/22/24 10:53 PHQ-9: PHQ-9 Score PHQ-9: Total score 0 11/22/24 10:53 Depression Screening Interpretation: Negative Thrive Assessment: Date of Thrive Assessment Date Thrive assessed 11/22/24 11/22/24 10:53 Currently or been in a relationship where the following occur: No concerns reported Const Other: General: No confusion Neck: thyroid enlarged Respiratory: Normal respiratory effort, clear to auscultation bilaterally Cardiovascular: No jugular venous distension, regular rate, regular rhythm, S1 normal heart sound present and S2 normal heart sound present Neurology: Patient oriented x3, no focal motor deficits and No confusion Extremities: Full ROM, straight leg test negative bilaterall Office Procedures Flu Questionnaire Does the patient have a severe egg allergy?: No Immunizations Fluarix Triv [id number] (PF) 45 mcg (15 mcg x 3)/0.5 mL IM syringe Performing Provider: Fannie Bustillos MD [facility] [facility] [place] [facility] Documented (not given) by: ÁNGELA Deng on 11/22/24 10:54 Reason Not Given: Patient Refused Coding Level of Care Code Est Pt Level 3 (99169) Complex EM visit Add On G2211 Diagnoses Bilateral low back pain without sciatica, unspecified chronicity M54.50 Chronicity: unspecified Back pain laterality: bilateral Sciatica presence: without sciatica Goiter E04.9 Additional Codes IKE-7 Assessment Billing - IKE-7 Assessment Tool: IKE-7 Assessment 50302 ([id number]) PHQ-9 - 81960 - PHQ-9 Billing: Yes ([id number]) Time Spent (min) 19 Assessment & Plan Assessment & Plan (1) Low back pain: Code(s): M54.50 - Low back pain, unspecified Category: Medical Qualifiers: Chronicity: unspecified Back pain laterality: bilateral Sciatica presence: without sciatica Qualified Code(s): M54.50 - Low back pain, unspecified (2) Goiter: Code(s): E04.9 - Nontoxic goiter, unspecified Category: Medical Plan - Recommend ordering spinal X-rays to further evaluate the back pain. - Refer the patient to an resource specialist or a pain management clinic for further evaluation and treatment of back pain. - Consider ordering a thyroid ultrasound as part of the patient?s overall evaluation. Patient was informed and verbally consented to the use of an ambient scribe for clinic note documentation during this visit. During our visit, I reviewed the patient?s history of back pain and suggested performing spinal imaging studies to better understand the etiology. I discussed the possibility of referring the patient to an resource specialist or a pain management clinic for further assessment and treatment. We also agreed to obtain laboratory tests and a thyroid ultrasound to ensure comprehensive medical evaluation. I explained that ibuprofen can be used for pain but should be taken cautiously due to potential side effects, and highlighted the need for imaging and specialized consultation to plan further treatment effectively. Orders: Orders XR lumbar spine 2-3V Today M54.50 - Low back pain, unspecified Thyroid Stimulating Hormone Today E04.9 - Nontoxic goiter, unspecified Free T4 (Free Thyroxine) Today E04.9 - Nontoxic goiter, unspecified US thyroid Today E04.9 - Nontoxic goiter, unspecified Complete Blood Count Auto Diff Today M54.50 - Low back pain, unspecified Influenza [id number] Immunization Today Z23 - Encounter for immunization Comprehensive Met. Panel Today M54.50 - Low back pain, unspecified Patient Instructions: - You will be sent for X-rays of your spine to evaluate the source of the back pain. - We will refer you to an resource specialist or pain management clinic for further evaluation. - Use ibuprofen for pain management as discussed, but avoid overuse. - Follow up with us for the results of your X-rays and any additional advice after you see the specialist. - Attend the laboratory tests and the thyroid ultrasound as planned.
[2024-11-22 10:48] VITALS: BP 122/80; PULSE 80; O2SAT 99; BMI 26.7
== END 2024-11-22 11:11 | disposition home or self-care (01) ==
PROVIDERS: PCP Internal Medicine; Visit Provider Internal Medicine
DX: M54.50 Low back pain, unspecified (principal); E04.9 Nontoxic goiter, unspecified; Z23 Encounter for immunization

== ENCOUNTER → 2024-11-22 11:47 | Outpatient (BNV) | payer OTHER, SELFPAY | PROVIDERS: PCP Internal Medicine; Visit Provider Specialist | DX: M54.50 Low back pain, unspecified (principal) | CPT/HCPCS: 72100 ==

== ENCOUNTER 2024-11-30 10:27 | Outpatient (REF) | payer OTHER, SELFPAY ==
--- NOTE | ~2024-11-30 | US_ITS ---
EXAMINATION: US THYROID CLINICAL INFORMATION: Nontoxic goiter, unspecified. COMPARISON: None available. TECHNIQUE: Linear transducer grayscale and color Doppler examination with attention to the region of the thyroid. FINDINGS: SIZE: Measurements of the thyroid lobes and nodules are given in sagittal, anteroposterior and transverse dimensions respectively. Right Thyroid Lobe: 5.6 x 1.3 x 1.5 cm, volume 5.7 mL. Parenchyma: The gland echotexture is normal. Thyroid vascularity is normal. Left Thyroid Lobe: 4.7 x 1.0 x 1.8 cm, volume 4.6 mL. Parenchyma: The gland echotexture is normal. Thyroid vascularity is normal. Isthmus: 0.2 cm in maximum AP dimension. Estimated total number of nodules greater than or equal to 1 cm: 0. [employer]er [employer]er nodules are described as follows: 1. Location: Right mid pole. Size: 0.9 x 0.4 x 0.7 cm, volume 0.14 mL. Nodule characteristics: Composition: Spongiform (0). ACR TI-RADS total points: 0 ACR TI-RADS category: 1 2. Location: Left lower pole. Size: 0.4 x 0.3 x 0.3 cm, volume 0.2 mL. Nodule characteristics: Composition: Cystic(0). ACR TI-RADS total points: 0 ACR TI-RADS category: 1 3. Location: Left lower pole. Size: 0.4 x 0.2 x 0.3 cm, volume 0.1 mL. Nodule characteristics: Composition: Cystic(0). ACR TI-RADS total points: 0 ACR TI-RADS category: 1 4. Location: Left lower pole. Size: 0.7 x 0.5 x 0.5 cm, volume 0.9 mL. Nodule characteristics: Composition: Spongiform (0). ACR TI-RADS total points: 0 ACR TI-RADS category: 1 NODES: No lymphadenopathy is seen in the tissue surrounding the thyroid gland. US/US thyroid IMPRESSION: 1. There are 4 lower pole cystic and/or spongiform subcentimeter nodules, none of which require follow-up or FNA. 2. The remainder of the thyroid gland is normal. ACR TI-RADS RECOMMENDATION REFERENCE: Ultrasound-guided fine-needle aspiration, followup ultrasound, no further follow up. * TR1 (0 point) and TR2 (2 points): No FNA or follow up. * TR3 (3 points): FNA if more than or equal to 2.5 cm in maximum dimension, followup ultrasound in 1, 3 and 5 years if 1.5 to 2.4 cm in maximum dimension. * TR4 (4-6 points): FNA if more than or equal to 1.5 cm in maximum dimension, followup ultrasound in 1, 2, 3 and 5 years if 1 to 1.4 cm in maximum dimension. * TR5 (more than or equal to 7 points): FNA if more than or equal to 1 cm in maximum dimension, followup ultrasound every year for 5 years if 0.5 to 0.9 cm in maximum dimension. * TR3, TR4 or TR5 nodules that are below the size threshold for followup receive no follow up. Electronically signed by: Shai Melendez MD 12/04/2024 09:19 AM RICHARD
== END 2024-11-30 10:28 | disposition home or self-care (01) ==
LOC: HO.HMGCX 10:27
PROVIDERS: PCP Internal Medicine; Visit Provider Internal Medicine
DX: E04.9 Nontoxic goiter, unspecified (principal)
CPT/HCPCS: 76536

== ENCOUNTER → 2024-11-30 10:35 | Outpatient (BNV) | payer OTHER, SELFPAY | PROVIDERS: PCP Internal Medicine; Visit Provider Radiology Diagnostic Radiology | DX: E04.9 Nontoxic goiter, unspecified (principal) | CPT/HCPCS: 76536 ==

== ENCOUNTER 2025-03-31 10:34 | Emergency (ER) | payer OTHER, SELFPAY ==
--- NOTE | ~2025-03-31 | CT_ITS ---
CLINICAL HISTORY: abd pain CT abdomen and pelvis with contrast Comparison: CT - CT ABDOMEN PELVIS W IV CON - 03/31/25 11:35 EDT Findings: The lung bases are clear. The liver, gallbladder, spleen, adrenal glands and pancreas are normal. Kidneys exhibit patchy and linear perfusion defects. No abscess. No obstructive uropathy. The bladder is unremarkable. Uterus demonstrates multiple masses the largest in the region of the fundus measuring up to 4.5 cm. No bowel obstruction or free air. No free fluid or abscess. No acute osseous finding. Impression: Abnormal linear and patchy perfusion defects within the kidneys consistent with pyelonephritis. No evidence of abscess. Clinical correlation and follow-up. Uterine fibroids are suggested. This document has been electronically signed by: Flo Cruz MD on 03/31/2025 12:32:23
[2025-03-31 10:39] VITALS: BP 123/84; PULSE 92; RESP 19; TEMP 36.6; O2SAT 99; BMI 27.5
[2025-03-31 11:08] LABS: MANUAL DIFF FLAG NO
[2025-03-31 11:10] LABS: Basophils Percent Auto 0.1 % (0-2); Eosinophils Absolute Auto 0.4 X10*3/uL (0.0-0.4); Eosinophils Percent Auto 5.1 % (0-4); Hematocrit 39.5 % (37.0-47.0); Hemoglobin 13.6 g/dl (12.0-16.0); Imm Gran Abs Auto 0.02 X10*3/uL (0.00-0.03); Imm Gran Pct Auto 0.3 % (0.0-0.4); Lymphocytes Absolute Auto 1.7 X10*3/uL (1.2-4.9); Lymphocytes Percent Auto 24.2 % (20-40); Mean Corpuscular HGB Conc 34.4 g/dl (31.0-35.0); Mean Corpuscular Hemoglobin 28.8 pg (27.0-33.0); Mean Corpuscular Volume 83.7 fL (80.0-98.0); Mean Platelet Volume 9.2 fL (9.4-12.3); Monocytes Absolute Auto 0.7 X10*3/uL (0.1-1.2); Monocytes Percent Auto 10.5 % (2-11); Neutrophils Absolute Auto 4.1 x10*3/uL (2.0-8.3); Neutrophils Percent Auto 59.8 % (45-73); Platelet Count 276 X10*3/uL (160-400); Red Blood Count 4.72 X10*6/uL (4.20-5.50); Red Cell Distribution Width 14.6 % (11.0-16.0); White Blood Count 6.9 X10*3/uL (4.8-10.8)
[2025-03-31 11:12] LABS: Appearance Urine Clear; Color Urine Yellow; Glucose Urine UA Negative (Negative); Leukocyte Esterase Urine Negative (Negative); Nitrite Urine Negative (Negative); Specific Gravity - Urine >= 1.030 (1.005-1.025); UMIC TRIGGER UACC YES; Urine Blood Large (3+) (Negative); Urine Ketones Trace mg/dL (Negative); Urine Protein Trace mg/dL (Neg-Trace)
[2025-03-31 11:14] LABS: UPreg QC Valid YES; Urine Pregnancy NEGATIVE (NEGATIVE)
[2025-03-31 11:17] LABS: Bacteria Urine None Seen (None Seen); Hyaline Casts Urine 0-2 /LPF (0-2); RBC Urine >20 /HPF (0-2); Squamous Epithelial Cell Urine 0-2 /HPF (0-2); WBC Urine 0-5 /HPF (0-5)
--- NOTE | 2025-03-31 11:23 | ED.ABDPAIN ---
HPI - Abdominal Pain General Chief Complaint: Abdominal Pain Stated Complaint: diaherra headache Time Seen by Provider: 03/31/25 11:05 History of Present Illness HPI narrative: patient is a 40-year-old female presents today with having nausea diarrhea for the last 3 days diffuse abdominal pain generalized malaise. Previous history of tubal ligation. No other abdominal surgery done in the past the stool was brown in color there is no travel. Patient from home there has been no change in diet. There is no recent antibiotics. There is Related Data Previous Rx's ?Medication ?Instructions ?Recorded epinephrine 0.3 mg/0.3 mL 0.3 mg (0.3 mL) IM Q4H PRN 01/16/24 injection, auto-injector (EpiPen anaphylaxis #2 ea 2-Jas) ferrous sulfate 325 mg (65 mg 325 mg PO DAILY 90 days #90 tabs 02/19/25 iron) tablet levofloxacin 500 mg tablet 500 mg PO Q24H pyelonephritis #10 03/31/25 tabs Allergies Allergy/AdvReac Type Severity Reaction Status Date / Time aspirin [ASPIRIN] Allergy Unknown HIVES, rash Verified 11/22/24 10:57 penicillin V Allergy Unknown rash Verified 11/22/24 10:57 Penicillins [PENICILLINS] Allergy Unknown HIVES Verified 11/22/24 10:57 nut - unspecified Allergy Anaphylaxis Verified 03/31/25 10:42 seafood Allergy Anaphylaxis Verified 03/31/25 10:42 Review of Systems Review of Systems Positive nausea positive diarrhea Yes all other systems are reviewed and are negative PMFSH Past Medical History Attestation statement: The following information was validated with the patient. Medical History Family history of diabetes mellitus Healthy adult Surgical History Hx of tubal ligation Previous section Family History Family History Father Diabetes Mother Diabetes Hypertension Social History Social History Housing: House Alcohol intake: never Patient Tobacco Use Status: Never used Tobacco e-Cigarette/Vaping Use: Never Used Second Hand Smoke Exposure: No Advance Directives: No Advance Directives Information Provided: No Do you have a plan to hurt others: No Plan service: No Current occupational status: employed Cognitive needs: No Hearing needs: No Vision needs: No Physical Exam ED Vital Signs: Vital Signs - 24 hr 03/31/25 10:39 03/31/25 11:51 Temperature 98 F 97.8 F Pulse Rate 92 92 Respiratory Rate 19 16 Blood Pressure 123/84 118/79 Pulse Oximetry 99 99 Oxygen Delivery Method Room Air Room Air BMI result Body Mass Index 27.5 Appearance: Alert. Oriented X3. No acute distress. Eyes: Pupils equal, round and reactive to light. ENT: Pharynx normal. Neck: Normal inspection. Neck supple. No lymph nodes noted. No crepitus CVS: Normal heart rate and rhythm. Pulses normal. Normal S1 and S2 Respiratory: No respiratory distress. Breath sounds normal. No Wheezing. No rales Abdomen: Soft and nontender. No rigidity. No distention. good BS x4 Skin: Skin warm and dry. Normal skin color. Normal skin turgor. Extremities: No lower extremity edema. Neurovascular intact to all extremities. No Lacerations. No Rash Neuro: Oriented X 3. No motor deficit. No sensory deficit. Moving all extermities. No slurred speech Medical Decision Making Medical Decision Making [facility] Narrative: patient is 40 years old presents today with having some diarrhea generalized malaise abdominal pain. Patient's CT scan of the abdomen showed no acute abscess perforation. No obstruction. There is question pyelonephritis noted. Patient's UA did not look infected nevertheless given the finding patient was started on antibiotics. Patient is white count is normal. Electrolytes unremarkable vital signs did not meet sirs criteria LFTs are normal no evidence of biliary disease urine showed no signs of infection COVID flu RSV were negative. Patient's blood pressure is normal heart rate is 92 temp is 98 no distress. Differential Diagnosis Differential Diagnoses: The differential diagnosis associated with the presentation includes diarrhea, pyelonephritis, UTI Admission/Observation Consideration of admission/observation: Escalation of care including admission/observation considered Lab Data [facility] Lab Attestation statement: I reviewed the patient's lab results. 03/31/25 10:59 03/31/25 10:59 Labs: Lab Results 03/31/25 03/31/25 Range/Units 10:59 11:00 WBC 6.9 (4.8-10.8) X10*3/uL RBC 4.72 (4.20-5.50) X10*6/uL Hgb 13.6 D (12.0-16.0) g/dl Hct 39.5 (37.0-47.0) % MCV 83.7 (80.0-98.0) fL MCH 28.8 (27.0-33.0) pg MCHC 34.4 (31.0-35.0) g/dl RDW 14.6 (11.0-16.0) % Plt Count 276 D (160-400) X10*3/uL MPV 9.2 L (9.4-12.3) fL Immature Gran % (Auto) 0.3 (0.0-0.4) % Neut % (Auto) 59.8 (45-73) % Lymph % (Auto) 24.2 (20-40) % Irion % (Auto) 10.5 (2-11) % Eos % (Auto) 5.1 H (0-4) % Baso % (Auto) 0.1 (0-2) % Lymph # (Auto) 1.7 (1.2-4.9) X10*3/uL Irion # (Auto) 0.7 (0.1-1.2) X10*3/uL Eos # (Auto) 0.4 (0.0-0.4) X10*3/uL Baso # (Auto) 0.0 (0.0-0.2) X10*3/uL Abs Immat Gran (auto) 0.02 (0.00-0.03) X10*3/uL Absolute Neuts (auto) 4.1 (2.0-8.3) x10*3/uL Absolute Nucleated RBC 0.000 (0.0-0.012) X10*3/uL Nucleated RBC % (auto) 0.0 (0.0-0.2) /100WBC Sodium 138 (135-145) mmol/L Potassium 3.4 (3.3-5.1) mmol/L Chloride 107 (96-108) mmol/L Carbon Dioxide 23 (22-29) mmol/L Anion Gap 11 L (12-20) BUN 11 (9-16) mg/dL Creatinine 0.63 (0.5-1.4) mg/dL Estim Creat Clear Calc 111.6 Estimated GFR > 60 Random Glucose 80 (60-115) mg/dL Calcium 8.2 L D (8.4-10.2) mg/dL Total Bilirubin 0.2 (0.0-1.0) mg/dL Direct Bilirubin < 0.2 (0.0-0.5) mg/dL AST 25 (5-31) U/L ALT 20 (0-31) U/L Alkaline Phosphatase 64 (39-117) U/L Total Protein 7.1 (6.5-8.0) g/dL Albumin 3.9 (3.5-5.0) g/dL Lipase 13 (8-78) U/L Urine Color Yellow Urine Appearance Clear Urine pH 6.0 (5.0-9.0) Ur Specific [place] >= 1.030 H (1.005-1.025) Urine Protein Trace (Neg-Trace) mg/dL Urine Glucose (UA) Negative (Negative) mg/dL Urine Ketones Trace (Negative) mg/dL Urine Blood Large (3+) H (Negative) Urine Nitrite Negative (Negative) Ur Leukocyte Esterase Negative (Negative) Urine RBC >20 H (0-2) /HPF Urine WBC 0-5 (0-5) /HPF Ur Squamous Epith Cells 0-2 (0-2) /HPF Urine Bacteria None Seen (None Seen) Hyaline Casts 0-2 (0-2) /LPF Urine Test NEGATIVE (NEGATIVE) Influenza Type A (PCR) NEGATIVE (Negative) Influenza Type B (PCR) NEGATIVE (Negative) RSV RNA Qual (PCR) NEGATIVE (Negative) SARS-CoV-2 RNA (RT-PCR) NEGATIVE (Negative) Independent Interpretation I performed an independent interpretation of an: CT Scan ( no gross obstruction noted) Radiology Impression Discussion of test interpretation with radiology: I have reviewed the radiologist's reading. Social Determinants Patient?s care significantly limited by Social Determinants of Health including: Problems related to primary support group Medications Administered Discontinued Medications Generic Name Dose Route Start Last Admin Trade Name Freq PRN Reason Stop Dose Admin Sodium Chloride 1,000 mls @ 999 mls/hr 03/31/25 11:30 03/31/25 11:57 Ns IV 03/31/25 12:30 999 mls/hr .Q1H1M BIANCA Administration Iohexol 100 ml 03/31/25 11:47 03/31/25 11:48 Iohexol 350 Mg/Ml 100 Ml Infus..Btl IV 03/31/25 11:48 85 ml ONCE ONE Administration Ondansetron HCl 4 mg 03/31/25 11:21 03/31/25 11:57 Ondansetron Hcl 4 Mg/2 Ml Vial IVPUSH 03/31/25 11:22 4 mg ONCE ONE Administration Discharge Plan Discharge Clinical Impression: Abdominal pain, Diarrhea, Pyelonephritis Patient Disposition: Home, Self-Care Instructions: Kidney Infection (ED), Acute Diarrhea (ED), Abdominal Pain (ED) Prescriptions: New levofloxacin 500 mg tablet 500 mg PO Q24H Qty: 10 0RF No Action ferrous sulfate 325 mg (65 mg iron) tablet 325 mg PO DAILY 90 Days Qty: 90 0RF epinephrine [EpiPen 2-Jas] 0.3 mg/0.3 mL auto-injector 0.3 mg IM Q4H PRN (Reason: anaphylaxis) Qty: 2 0RF Referrals: Fannie Raya MD [Primary Care Provider] - 04/02/25 Print Language: Lao
[2025-03-31 11:24] LABS: Alanine Aminotransferase 20 U/L (0-31); Albumin Level 3.9 g/dL (3.5-5.0); Alkaline Phosphatase 64 U/L (39-117); Anion Gap 11 (12-20); Aspartate Amino Transferase 25 U/L (5-31); Bilirubin Direct < 0.2 mg/dL (0.0-0.5); Bilirubin Total 0.2 mg/dL (0.0-1.0); Blood Urea Nitrogen 11 mg/dL (9-16); Calcium 8.2 mg/dL (8.4-10.2); Carbon Dioxide 23 mmol/L (22-29); Chloride 107 mmol/L (96-108); Creatinine Clr Calc Pharmacy 111.6; Estimated Glomerular Filt Rate > 60; Glucose Random 80 mg/dL (60-115); Lipase 13 U/L (8-78); Potassium 3.4 mmol/L (3.3-5.1); Sodium 138 mmol/L (135-145); Total Protein 7.1 g/dL (6.5-8.0)
[2025-03-31 11:48] LABS: Influenza A PCR NEGATIVE (Negative); Influenza B PCR NEGATIVE (Negative); Resp Syncy Virus RNA Qual PCR NEGATIVE (Negative); SARS COV2 PCR INHOUSE NEGATIVE (Negative)
[2025-03-31] MEDS: iohexoL 350 MG/ML 100 ML INFUS..BTL IV (11:48)
[2025-03-31 11:51] VITALS: BP 118/79; PULSE 92; RESP 16; TEMP 36.6; O2SAT 99
[2025-03-31] MEDS: 0.9 % Sodium Chloride 1,000 ML 999 ML IV (11:57)
[2025-03-31] MEDS: ondansetron HCL 4 MG/2 ML VIAL IVPUSH (11:57)
[2025-03-31] MEDS: levoFLOXacin 500 MG TABLET PO (12:57)
[2025-03-31 13:00] VITALS: BP 115/89; PULSE 90; RESP 18; TEMP 36.5; O2SAT 100
[2025-03-31 13:02] VITALS: BP 115/89; PULSE 90; RESP 18; TEMP 36.5; O2SAT 100
== END 2025-03-31 13:05 | disposition home or self-care (01) ==
PROVIDERS: Emergency Provider Emergency Medicine Emergency Medical Services; PCP Internal Medicine
DX: N12 Tubulo-interstitial nephritis, not specified as acute or chronic (principal); R10.2 Pelvic and perineal pain; R11.0 Nausea; R19.7 Diarrhea, unspecified; Z03.818 Encounter for observation for suspected exposure to other biological agents ruled out; Z79.899 Other long term (current) drug therapy
CPT/HCPCS: 0241U; 74177; 80048; 80076; 81001; 81025; 83690; 85025; 96374; 96375; 99284; J2405; Q9967

== ENCOUNTER → 2025-03-31 11:22 | Outpatient (BNV) | payer OTHER, SELFPAY | PROVIDERS: Emergency Provider Emergency Medicine Emergency Medical Services; PCP Internal Medicine; Visit Provider Radiology Vascular & Interventional Radiology | DX: R10.84 Generalized abdominal pain (principal) | CPT/HCPCS: 74177 ==

== ENCOUNTER 2025-04-10 10:30 | Outpatient (AMB) | payer OTHER, SELFPAY ==
[2025-04-10 10:55] VITALS: BP 126/80; BMI 28.0
--- NOTE | 2025-04-10 10:55 | A.OFFPC_ITS ---
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[employer] Required: No Accompanied by: Self / Same As Patient Allergies aspirin [ASPIRIN] Allergy (Unknown, Verified 04/10/25 11:01) HIVES, rash penicillin V Allergy (Unknown, Verified 04/10/25 11:01) rash Penicillins [PENICILLINS] Allergy (Unknown, Verified 04/10/25 11:01) HIVES nut - unspecified Allergy (Verified 04/10/25 11:01) Anaphylaxis seafood Allergy (Verified 04/10/25 11:01) Anaphylaxis Medication List - Last Reconciled 04/10/25 by Fannie Bustillos MD epinephrine (EpiPen 2-Jas) 0.3 mg (0.3 mL) IM Q4H PRN ferrous sulfate 325 mg PO DAILY 90 days levofloxacin 500 mg PO Q24H Tobacco use date assessed: 11/22/24 Dental Screening Dental Screen Date: 11/22/24 HPI HPI Comments History of Present Illness Details The patient is a 40-year-old female presenting for her annual physical examination. 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 Her surgical history includes a section and subsequent tubal ligation. Her family history reveals both parents have diabetes mellitus. In terms of health maintenance, she last had a mammogram in August and a Pap smear in July. No vaccinations are currently due, though a tetanus booster is scheduled for next year. Lab results indicated a hemoglobin of 13.6 g/dl with previous findings of slightly low calcium levels at 8.2 mg/dl. Her dietary intake includes calcium-rich foods like yogurt and milk. She denies smoking, alcohol consumption, depression, and anxiety. - Mammogram completed in August; next d ue based on guideline recommendations - Pap smear conducted in July; sanjeev dule for follow-up as per perioperative tech - Tetanus booster due next year - Regular dietary intake of calcium thro ugh yogurt and milk - Previous laboratories: Hemoglobin 13.6 g/dl, Calcium slightly below normal at 8.2 mg/dl - Suggested laboratory to include lipid profile and ionized calcium check [facility] Medical History (Updated 04/10/25 @ 11:43 by Fannie Bustillos MD) Family history of diabetes mellitus Healthy adult Surgical History Hx of tubal ligation Previous section Family History Father Diabetes Mother Diabetes Hypertension Social History Housing: House Alcohol intake: never Patient Tobacco Use Status: Never used Tobacco e-Cigarette/Vaping Use: Never Used Second Hand Smoke Exposure: No service: No Current occupational status: employed Current occupational exposures/hazards: No Cognitive needs: No Hearing needs: No Vision needs: No Female Reproductive History Menstrual Age of Menarche: 13 Questionnaire PHQ-9 Over the last 2 weeks, how often have you been bothered by any of the following problems? 1. Little interest or pleasure in doing things: not at all 2. Feeling down, depressed, or hopeless: not at all 3. Trouble falling or staying asleep, or sleeping too much: not at all 4. Feeling tired or having little energy: not at all 5. Poor appetite or overeating: not at all 6. Feeling bad about yourself - or that you are a failure or have let yourself or your family down: not at all 7. Trouble concentrating on things, such as reading the newspaper or watching television: not at all 8. Moving or speaking so slowly that other people could have noticed. Or the opposite - being so fidgety or restless that you have been moving around a lot more than usual: not at all 9. Thoughts that you would be better off or of hurting yourself in some way: not at all Total score: 0 Depression Screening Interpretation: Negative Depression Screening Done: Yes 31745 - PHQ-9 Billing: Yes Source: Developed by Drs. Nolberto Platt, Tamia Saldivar, Dixon Bauer and colleagues, with an educational michael from [employer]. Thrive Questionnaire Date Thrive assessed: 04/03/25 I am a: Patient What is your living situation today?: I have a steady place to live Within the past 12 months, did the food you bought not last and you didn't have the money to get more?: Never true Within the past 12 months, did you worry whether your food would run out before you got money to buy more?: Never true Do you have trouble paying for medicines?: No Do you have trouble getting transportation to medical appointments?: No Do you have trouble paying your heating and electricity bill?: No Do you have trouble taking care of your child, family member or friend?: No Do you have trouble with day-to-day activities such as bathing, preparing meals, shopping, managing finances, etc.?: No Are you currently unemployed and looking for a job?: No Are you interested in more education?: No Please select the resources that you would like help with: None Currently or been in a relationship where the following occur: No concerns reported THRIVE Score: 0 AUDIT C Alcohol Use Questionnaire (AUDIT-C) 1. How often do you have a drink containing alcohol?: Never Total Score: 0 Score Reviewed/Action Taken: No IKE-7 AMB Questionnaire IKE-7 Date IKE - 7 assessed: 04/10/25 Feeling nervous, anxious, or on edge: 0 = Not at all Not being able to stop or control worryin = Not at all Worrying too much about different things: 0 = Not at all Trouble relaxin = Not at all Being so restless that it is hard to sit still: 0 = Not at all Becoming easily annoyed or irritable: 0 = Not at all Feeling afraid as if something awful might happen: 0 = Not at all Total IKE-7 score (0-4 normal; 5-9 mild; 10-14 moderate; 15-21 severe): 0 Source: Developed by Drs. Nolberto Platt, Tamia Saldivar, Dixon Bauer and colleagues, with an educational michael from [employer]. IKE-7 Assessment Billing IKE-7 Assessment Tool: IKE-7 Assessment 94204 Review of Systems Const All systems reviewed & are unremarkable except as noted in HPI and below ENT Denies change in voice, Denies nasal discharge and Denies sinus pain Card Denies chest pain at rest, Denies chest pain with activity, Denies edema, Denies irregular heart rhythm, Denies claudication, Denies dyspnea, Denies dyspnea on exertion, Denies orthopnea, Denies paroxysmal nocturnal dyspnea and Denies slow heart rate Resp Denies cough, Denies dyspnea and Denies dyspnea on exertion Musc Reports back pain Physical exam (Primary Care) Vital Signs: Last Vital Signs BP 126/80 04/10/25 10:55 BMI result Body Mass Index 28.0 Tobacco/Smoking Status: Tobacco use Status Tobacco use date assessed 11/22/24 04/10/25 10:59 Patient Tobacco Use Status Never used Tobacco 04/10/25 10:59 e-Cigarette/Vaping Use Never Used 04/10/25 10:59 PHQ-9: PHQ-9 Score PHQ-9: Total score 0 04/10/25 10:59 Depression Screening Interpretation: Negative Thrive Assessment: Date of Thrive Assessment Date Thrive assessed 04/03/25 04/10/25 10:59 Currently or been in a relationship where the following occur: No concerns reported HENMT Head: Yes normal to inspection, Yes normocephalic and Yes atraumatic Ears: external ears normal Eyes General: appearance normal, both eyes and all related structures Eyelids: Yes eyelids normal Conjunctivae: conjunctivae normal Neck Neck: Yes normal visual inspection and Yes supple Resp Effort & Inspection: normal respiratory effort Auscultation: clear to auscultation bilaterally Cardio Jugular venous distension: no JVD Rate: regular rate Rhythm: regular rhythm Heart sounds: S1 normal heart sound present and S2 normal heart sound present GI Inspection: Yes normal to inspection Palpation (GI): Soft to palpation and nontender Auscultation: normal bowel sounds Skin General skin exam: no rashes or lesions noted Neuro General: no focal motor deficits Extrem General: Yes full ROM Psych Appearance: grossly normal Coding Level of Care Code Est Pt Level 3 (12364) Est Pt Prev Care 40-64y(76561) Diagnoses Physical exam Z00.00 Hypocalcemia E83.51 Microscopic hematuria R31.29 Additional Codes PHQ-9 - 40681 - PHQ-9 Billing: Yes ([id number]) IKE-7 Assessment Billing - IKE-7 Assessment Tool: IKE-7 Assessment 99682 ([id number]) Time Spent (min) 35 Assessment & Plan Assessment & Plan (1) Physical exam: Code(s): Z00.00 - Encounter for general adult medical examination without abnormal findings Category: Medical (2) Hypocalcemia: Code(s): E83.51 - Hypocalcemia Category: Medical (3) Microscopic hematuria: Code(s): R31.29 - Other microscopic hematuria Category: Medical Plan Management included reinforcing the need for an Epinephrine auto-injector due to anaphylactic history. Surgical history of section and tubal ligation remains stable without further required follow-up. Health maintenance encompasses regular mammograms, Pap smears, and vaccination updates. The patient's diet with calcium-rich foods was noted, and plans to retest lipid profile and ionized calcium were made. Family diabetes history suggests monitoring fasting glucose levels. Positive lifestyle choices such as not smoking or drinking were discussed. Patient was informed and verbally consented to the use of an ambient scribe for clinic note documentation during this visit. 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 We reviewed the completion of her mammogram and Pap smear, stressing the importance of routine screenings. I explained the necessity for a future tetanus booster and reviewed her laboratory results. The calcium deficiency prompted a discussion on dietary intake and repeat testing, including fasting lipid profile and ionized calcium levels. We also covered the family history of diabetes, suggesting the need for periodic blood sugar checks. Her positive lifestyle choices were acknowledged, emphasizing the benefits of maintaining such habits. Orders: Orders Lipid Panel Today E78.5 - Hyperlipidemia, unspecified Calcium, Ionized Today E83.51 - Hypocalcemia UA CC w/rflx Micro + Cult 6 Weeks R30.0 - Dysuria Referrals Chiropractic Referral M54.50 - Low back pain, unspecified Medications: Changed From ferrous sulfate 325 mg PO DAILY 90 days 90 tabs 0RF To ferrous sulfate 325 mg PO .once a week 90 days 12 tabs 3RF Refilled epinephrine (EpiPen 2-Jas) 0.3 mg (0.3 mL) IM Q4H PRN 2 ea 0RF anaphylaxis Patient Instructions: - Continue carrying Epinephrine auto-injector - Maintain regular dietary intake of calcium-rich foods - Schedule follow-up labs for lipid profile and calcium - Monitor blood sugar levels periodically due to family diabetes history - Keep up with routine Pap smears and mammograms - Update tetanus booster next year - Maintain non-smoking and non-alcoholic lifestyle
--- OUTSIDE RECORDS SUMMARY | 2025-04-10 12:01 | XMS_ITS | Clinical Summary ---
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 Name Role Phone Unavailable Primary Care Provider Unavailabl e Source Comments PLEASE NOTE, if this patient is a minor, it may be UNLAWFUL to discuss sensitive information that is contained in these records (such as FAMILY PLANNING, MENTAL HEALTH or SUBSTANCE ABUSE) with the minor patient's parent or other person without the patient's specific authorization.[facility] Social History Tobacco Use Types Packs/Day Years Used Date Smoking Tobacco: Never Assessed Social Connections Answer Date Recorded Social Connections and Isolation 0 05/10/2022 Financial Resource Strain Answer Date R ecorded Financial Resource Strain 0 2021 Stress Answer Date Recorded Stress 0 05/10/2022 Physical Activity Answer Date Recorded Physical Activity 0 05/10/2022 Food Insecurity Answer Date Recorded Food 0 05/10/2022 Transportation Needs Answer Date Record ed Transportation 0 05/10/2022 Housing Stability Answer Date Recorded Housing 0 05/10/2022 Safety and Environment Answer Date Thomas rded Safety 0 05/10/2022 Utilities Answer Date Recorded Utilities 0 05/10/2022 Employment Answer Date Recorded Employment 0 05/10/2022 Comments Unknown Sex and Gender Information Value Date Recorded Sex Assigned at Not on file Legal Sex Female 8:57 AM PDT Gender Identity Not on file Sexual Orientation Not on file Plan of Treatment Not on file Insurance [place] MEDICAID DENTAL [facility] NET DENTAL
== END 2025-04-10 11:13 | disposition home or self-care (01) ==
LOC: HO.HMCH 10:31
PROVIDERS: PCP Internal Medicine; Visit Provider Internal Medicine
DX: Z00.00 Encounter for general adult medical examination without abnormal findings (principal); E83.51 Hypocalcemia; R31.29 Other microscopic hematuria

== ENCOUNTER → 2025-04-10 10:30 | Outpatient (BNVA) | payer OTHER, SELFPAY | PROVIDERS: PCP Internal Medicine; Visit Provider Internal Medicine | DX: Z00.00 Encounter for general adult medical examination without abnormal findings (principal); E83.51 Hypocalcemia; R31.29 Other microscopic hematuria; E78.5 Hyperlipidemia, unspecified; R30.0 Dysuria; M54.50 Low back pain, unspecified | CPT/HCPCS: 96127 ==

== ENCOUNTER 2025-04-17 10:47 | Outpatient (REF) | payer OTHER, SELFPAY ==
--- OUTSIDE RECORDS SUMMARY | 2025-04-17 11:52 | XMS_ITS | Clinical Summary ---
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 NET DENTAL
[2025-04-17 12:52] LABS: Cholesterol 171 mg/dL (<200); HDL Cholesterol 43 mg/dL (>40); LDL Cholesterol Calculated 87 mg/dL (<100); Triglycerides 207 mg/dL (<150)
[2025-04-19 16:17] LABS: Calcium, Ionized 5.2 mg/dL (4.7-5.5)
== END 2025-04-17 10:48 | disposition home or self-care (01) ==
LOC: HO.LAB 10:47
PROVIDERS: PCP Internal Medicine; Visit Provider Internal Medicine
DX: E83.51 Hypocalcemia (principal); E78.5 Hyperlipidemia, unspecified
CPT/HCPCS: 36415; 80061; 82330

== ENCOUNTER 2025-08-08 10:10 | Outpatient (AMB) | payer OTHER, SELFPAY ==
--- NOTE | 2025-08-08 10:22 | MHC.OFFVIS ---
Vital Signs 08/08/25 10:24 Height 5 ft 3 in Weight 160 lb 2 oz BMI 28.4 BP 100/78 Intake Visit Reasons: annual/cotest Credentialing Assistant Required: Yes Credentialing Assistant Services: Credentialing Assistant Present (josé miguel) Information Interpreted: clinical only Fountain Brush Assembler: Fountain Brush Assembler Present (josé miguel) Accompanied by: Self / Same As Patient Allergies aspirin (ASPIRIN) Allergy (Unknown, Verified 08/08/25 10:24) HIVES, rash penicillin V Allergy (Unknown, Verified 08/08/25 10:24) rash Penicillins (PENICILLINS) Allergy (Unknown, Verified 08/08/25 10:24) HIVES nut - unspecified Allergy (Verified 08/08/25 10:24) Anaphylaxis seafood Allergy (Verified 08/08/25 10:24) Anaphylaxis Is last menstrual period known: Yes Last menstrual period: 07/29/25 HPI Comments Details: Presenting for annual exam. No complaints. Last Pap/HPV was ascus HPV negative in 08/14 Last Mammogram was BI-RADS 1 in 09/13 [facility] Medical History ASCUS of cervix with negative high risk HPV Family history of diabetes mellitus Healthy adult Surgical History Hx of tubal ligation Previous section Family History Father Diabetes Mother Diabetes Hypertension Social History Housing: House Alcohol intake: never Patient Tobacco Use Status: Never used Tobacco e-Cigarette/Vaping Use: Never Used Second Hand Smoke Exposure: No service: No Current occupational status: employed Current occupational exposures/hazards: No Cognitive needs: No Hearing needs: No Vision needs: No Female Reproductive History Menstrual Age of Menarche: 13 Date of last menstrual period: 07/29/25 control method: permanent sterilization Total pregnancies: 2 Full term: 2 Number of Living Children: 2 Date of last pap smear: 03/20/20 History of abnormal pap smear: No Date of Mammogram: 09/10/24 History of abnormal mammogram: No Review of Systems Const All systems reviewed & are unremarkable except as noted in HPI and below Card Reports as per HPI Resp Reports as per HPI GI Reports as per HPI and Reports no additional complaints Reports as per HPI Physical Exam Vital Signs: Last Vital Signs BP 100/78 08/08/25 10:24 BMI result Body Mass Index 28.4 Const General: cooperative, healthy appearing and comfortable Chest Chest palpation & inspection: normal inspection of the chest and normal palpation of entire chest wall Breast/axilla inspection: normal inspection of the breasts and normal inspection of the axillae Breast/axilla palpation: normal palpation of the breasts, normal palpation of the axillae and no axillary lymphadenopathy Resp Effort & Inspection: normal respiratory effort Auscultation: clear to auscultation bilaterally Percussion: percussion normal Cardio Palpation: normal PMI Rate: regular rate Rhythm: regular rhythm Heart sounds: no murmurs and no rubs Peripheral pulses: Peripheral pulses 2+ throughout GI Inspection: Yes normal to inspection Palpation (GI): Soft to palpation, nontender, no guarding, not rigid and No hepatosplenomegaly present Percussion: Yes normal to percussion Auscultation: normal bowel sounds Rectal Exam - Female: deferred General: Yes bladder normal to palpation External Female Exam: No lesion Speculum Exam - Vagina: normal appearance of the vagina, normal palpation, normal vaginal discharge and not erythematous Speculum Exam - Cervix: normal appearance of the cervix and normal palpation Bimanual exam- vagina & uterus: No normal bimanual exam (Left adnexal fullness, right within normal), normal palpation, uterine size normal, bladder normal to palpation, consistency normal and normal palpation Bimanual Exam- Adnexa, other: normal adnexae, no masses and no tenderness Assessment & Plan Assessment & Plan (1) Well woman exam: Code(s): Z01.419 - Encounter for gynecological examination (general) (routine) without abnormal findings Category: Medical Plan: Cotesting done. Mammogram ordered. Counseled the patient about the recommended dietary allowance of 1000 mg of Calcium & 600 IU of vitamin D. The patient was instructed to perform monthly self-breast exams and to schedule an annual exam in a year; All questions answered and the patient verbalized understanding. Instructed the patient to schedule annual exam in a year (2) Adnexal fullness: Comment: Left side Code(s): N94.9 - Unspecified condition associated with female genital organs and menstrual cycle Category: Medical Plan: Discussed with the patient the finding on pelvic exam, left adnexal fullness. Pelvic ultrasound ordered. Instructions given the patient to schedule an ultrasound and a follow-up appointment within 2 weeks. All questions answered, the patient verbalized understanding. Orders: Orders US pelvic and transvaginal Today N94.9 - Unspecified condition associated with female genital organs and menstrual cycle MM tomosynthesis screening BI Today Z12.31 - Encounter for screening mammogram for malignant neoplasm of breast Coding Level of Care Code Est Pt Level 3 (83267) New Pt Prev Care 40-64y(70411) Diagnoses Well woman exam Z01.419 Adnexal fullness N94.9
[2025-08-08 10:24] VITALS: BP 100/78; BMI 28.4
--- OUTSIDE RECORDS SUMMARY | 2025-08-08 12:00 | XMS_ITS | Clinical Summary ---
Author Organization [facility] Address [address] [place] [address] Care Team Providers Care Food Sanitarian Name Role Phone Unavailable Primary Care Provider [...] Plan of Treatment Not on file [place] [facility] NET DENTAL
== END 2025-08-08 10:49 | disposition home or self-care (01) ==
LOC: HO.HWS 10:10
PROVIDERS: PCP Internal Medicine; Visit Provider Obstetrics & Gynecology
DX: Z01.411 Encounter for gynecological examination (general) (routine) with abnormal findings (principal); N83.9 Noninflammatory disorder of ovary, fallopian tube and broad ligament, unspecified
CPT/HCPCS: 99213; 99396; 99459

== ENCOUNTER 2025-08-08 10:10 | Outpatient (REF) | payer OTHER, SELFPAY | END 2025-08-08 10:11 | disposition home or self-care (01) | LOC: HO.LNP 10:10 | PROVIDERS: PCP Internal Medicine; Visit Provider Obstetrics & Gynecology | DX: Z01.419 Encounter for gynecological examination (general) (routine) without abnormal findings (principal); Z12.31 Encounter for screening mammogram for malignant neoplasm of breast; Z11.51 Encounter for screening for human papillomavirus (HPV); N94.9 Unspecified condition associated with female genital organs and menstrual cycle; Z98.51 Tubal ligation status | CPT/HCPCS: 87626; 88175 ==

== ENCOUNTER 2025-08-27 09:23 | Outpatient (REF) | payer OTHER, SELFPAY ==
--- NOTE | ~2025-08-27 | US_ITS ---
CLINICAL HISTORY: N94.9 - Unspecified condition associated with female genital organs and ... PELVIC ULTRASOUND TRANSVAGINAL ULTRASOUND ULTRASOUND ABDOMEN VASCULAR COMPLETE COMPARISON: CT abdomen/pelvis 03/31/2025. FINDINGS: Uterus measures 10.3 x 3.8 x 7.9 cm. A subserosal fibroid arises from the anterior uterine body and is estimated to measure 2.0 x 1.6 x 1.6 cm on image 61. Endometrial stripe measures 13 mm in thickness on image 47. No adnexal mass or loculated fluid collection. Trace amount of pelvic free fluid is noted, likely physiologic. Right ovary measures 1.6 x 1.6 x 2.3 cm and is unremarkable. Left ovary measures 2.8 x 1.5 x 2.3 cm and is unremarkable. Grayscale, spectral Doppler, and color flow analysis of the bilateral ovaries was performed. There are arterial and venous waveforms in both ovaries. Please note that ovarian torsion is a clinical diagnosis. IMPRESSION: 1. There is a 2.0 x 1.6 x 1.6 cm uterine fibroid. 2. Both ovaries are unremarkable. 3. Trace pelvic free fluid, likely physiologic. This document has been electronically signed by: Raul Buckley M.D. on 08/28/2025 05:42:41
--- OUTSIDE RECORDS SUMMARY | 2025-08-27 10:35 | XMS_ITS | Clinical Summary ---
Author Organization [facility] Address [address] [place] [address] Care Team Providers Care Dictionary Editor Name Role Phone Unavailable Primary Care Provider [...] Plan of Treatment Not on file [place] [facility] NET DENTAL
== END 2025-08-27 09:24 | disposition home or self-care (01) ==
LOC: HO.US 09:23
PROVIDERS: PCP Internal Medicine; Visit Provider Obstetrics & Gynecology
DX: N94.9 Unspecified condition associated with female genital organs and menstrual cycle (principal)
CPT/HCPCS: 76830; 76856

== ENCOUNTER → 2025-08-27 09:37 | Outpatient (BNV) | payer OTHER, SELFPAY | PROVIDERS: PCP Internal Medicine; Visit Provider Radiology Diagnostic Radiology | DX: D25.9 Leiomyoma of uterus, unspecified (principal) | CPT/HCPCS: 76830; 76856 ==

== ENCOUNTER 2025-09-17 10:44 | Outpatient (AMB) | payer OTHER, SELFPAY ==
[2025-09-17 11:05] VITALS: BP 118/74; BMI 28.3
--- NOTE | 2025-09-17 11:05 | A.OFFVIS_ITS ---
Vital Signs 09/17/25 11:05 Height 5 ft 3 in Weight 160 lb BMI 28.3 BP 118/74 Intake Visit Reasons: ultrasound results Disaster Recovery Coordinator Required: Yes Disaster Recovery Coordinator Language: Bulk Plant Manager Services: Disaster Recovery Coordinator Present (in person) Disaster Recovery Coordinator Name: Nancy FRIEDMAN Information Interpreted: non-clinical & clinical Accompanied by: Self / Same As Patient Allergies aspirin (ASPIRIN) Allergy (Unknown, Verified 09/17/25 11:06) HIVES, rash penicillin V Allergy (Unknown, Verified 09/17/25 11:06) rash Penicillins (PENICILLINS) Allergy (Unknown, Verified 09/17/25 11:06) HIVES nut - unspecified Allergy (Verified 09/17/25 11:06) Anaphylaxis seafood Allergy (Verified 09/17/25 11:06) Anaphylaxis Is last menstrual period known: Yes Last menstrual period: 08/29/25 HPI Comments Details: Presenting for ultrasound follow-up regarding adnexal fullness felt on pelvic exam. Ultrasound done in 09/14 showed the following: FINDINGS: Uterus measures 10.3 x 3.8 x 7.9 cm. A subserosal fibroid arises from the anterior uterine body and is estimated to measure 2.0 x 1.6 x 1.6 cm on image 61. Endometrial stripe measures 13 mm in thickness on image 47. No adnexal mass or loculated fluid collection. Trace amount of pelvic free fluid is noted, likely physiologic. Right ovary measures 1.6 x 1.6 x 2.3 cm and is unremarkable. Left ovary measures 2.8 x 1.5 x 2.3 cm and is unremarkable. Grayscale, spectral Doppler, and color flow analysis of the bilateral ovaries was performed. There are arterial and venous waveforms in both ovaries. Please note that ovarian torsion is a clinical diagnosis. IMPRESSION: 1. There is a 2.0 x 1.6 x 1.6 cm uterine fibroid. 2. Both ovaries are unremarkable. 3. Trace pelvic free fluid, likely physiologic. [facility] Medical History ASCUS of cervix with negative high risk HPV Family history of diabetes mellitus Healthy adult Surgical History Hx of tubal ligation Previous section Family History Father Diabetes Mother Diabetes Hypertension Social History Housing: House Alcohol intake: never Patient Tobacco Use Status: Never used Tobacco e-Cigarette/Vaping Use: Never Used Second Hand Smoke Exposure: No service: No Current occupational status: employed Current occupational exposures/hazards: No Cognitive needs: No Hearing needs: No Vision needs: No Female Reproductive History Menstrual Age of Menarche: 13 Date of last menstrual period: 08/29/25 Review of Systems Const All systems reviewed & are unremarkable except as noted in HPI and below Reports as per HPI and Reports no additional complaints GI Reports no additional complaints Reports no additional complaints Physical Exam Vital Signs: Last Vital Signs BP 118/74 09/17/25 11:05 BMI result Body Mass Index 28.3 Assessment & Plan Assessment & Plan (1) Uterine myoma: Code(s): D25.9 - Leiomyoma of uterus, unspecified Category: Medical Plan: Discussed with the patient the findings on pelvic ultrasound & the risk of myosarcoma; in addition reviewed with the patient that malignancy and pre malignancy cannot be ruled out without hysterectomy for pathological evaluation ; furthermore, explained to the patient the limitation of pelvic ultrasound and endometrial biopsy in the setting. Discussed with the patient the options of treatment including expectant management versus hysterectomy; the pros and cons, risks benefits of each approach were discussed with the patient including the fact that in cases of myosarcoma, surgical treatment can lead to early diagnosis and positively affects the prognosis; after further discussion, the patient decided to proceed with expectant management. Will repeat pelvic ultrasound periodically. Instructions given to patient to call in case any of the following occurs: pressure symptoms, abnormal uterine bleeding, pelvic pain; and to schedule a six-months pelvic ultrasound (order placed) and a follow-up appointment . All questions answered, the patient verbalized understanding and agreed with the plan . Orders: Orders US pelvic and transvaginal 6 Months D25.9 - Leiomyoma of uterus, unspecified Coding Level of Care Code Est Pt Level 3 (30796) Diagnoses Uterine myoma D25.9
== END 2025-09-17 11:17 | disposition home or self-care (01) ==
LOC: HO.HWS 10:46
PROVIDERS: PCP Internal Medicine; Visit Provider Obstetrics & Gynecology
DX: D25.9 Leiomyoma of uterus, unspecified (principal)
CPT/HCPCS: 99213

== ENCOUNTER 2025-11-02 14:15 | Emergency (ER) | payer OTHER, SELFPAY ==
[2025-11-02 14:30] VITALS: BP 142/85; PULSE 95; RESP 16; TEMP 36.8; O2SAT 96; BMI 26.1
--- NOTE | 2025-11-02 14:31 | ED.URI ---
HPI - URI/Sore Throat General Chief Complaint: Upper Respiratory Symptoms Stated Complaint: sore throat, body aches Time Seen by Provider: 11/02/25 14:37 Source: patient, RN notes reviewed and old records reviewed Mode of arrival: ambulatory Limitations: no limitations History of Present Illness ED Provider: Danyell Villalpando PA-C HPI Narrative: Patient requested media services specialist but was not needed but still used media services specialist on video just in case. Katherine is a young adult presenting with 2 days of sore throat, non-productive cough, body aches, and headache. She denies measured fever at home and has had no nausea, vomiting, or diarrhea. She reports taking ibuprofen for symptom relief, with partial benefit. No prior COVID-19, influenza, or strep testing was performed before today. She notes that her young child is also ill with similar symptoms. She remains able to hydrate and urinate without difficulty. Review of Systems: Constitutional: positive for body aches; denies fever. HEENT: positive for sore throat, headache. Respiratory: positive for cough. GI: denies nausea, vomiting, diarrhea. : normal urine output. Related Data Previous Rx's ?Medication ?Instructions ?Recorded levofloxacin 500 mg tablet 500 mg PO Q24H pyelonephritis #10 03/31/25 tabs epinephrine 0.3 mg/0.3 mL 0.3 mg (0.3 mL) IM Q4H PRN 04/10/25 injection, auto-injector (EpiPen anaphylaxis #2 ea 2-Jas) ferrous sulfate 325 mg (65 mg 325 mg PO .once a week 90 days #12 04/10/25 iron) tablet tabs oseltamivir 75 mg capsule (Tamiflu) 75 mg PO BID 5 days #10 caps 11/02/25 Allergies Allergy/AdvReac Type Severity Reaction Status Date / Time aspirin (ASPIRIN) Allergy Unknown HIVES, rash Verified 11/02/25 14:35 penicillin V Allergy Unknown rash Verified 11/02/25 14:35 Penicillins (PENICILLINS) Allergy Unknown HIVES Verified 11/02/25 14:35 nut - unspecified Allergy Anaphylaxis Verified 11/02/25 14:35 seafood Allergy Anaphylaxis Verified 11/02/25 14:35 Review of Systems Review of Systems: Yes all other systems are reviewed and are negative PMFSH Past Medical History Attestation statement: The following information was validated with the patient. Source: old records reviewed and nursing notes reviewed Medical History ASCUS of cervix with negative high risk HPV Family history of diabetes mellitus Healthy adult Surgical History Hx of tubal ligation Previous section Family History Family History Father Diabetes Mother Diabetes Hypertension Social History Social History Housing: House Alcohol intake: never Patient Tobacco Use Status: Never used Tobacco e-Cigarette/Vaping Use: Never Used Second Hand Smoke Exposure: No Advance Directives: No Advance Directives Information Provided: No service: No Current occupational status: employed Current occupational exposures/hazards: No Cognitive needs: No Hearing needs: No Vision needs: No Physical Exam Exam: Exam: General: Appears in no acute distress, appears well nourished body habitus is normal, appears stated age. No septic or ill-appearing. Vitals reviewed normal, PMH/Social and Surgical hx reviewed including allergies and current medications. - reviewed for prior visits here Head: Normocephalic, no obvious trauma or skin lesions noted. Eyes: EOMI, conj/ sclera clear, no pallor ENMT: mild pharyngeal erythema; single tender, swollen anterior cervical lymph node noted. uvula is midline no trismus, no edematous nasal turbinates noted, no d/c Cardiovascular: peripheral perfusion normal, Regular heart rate Respiratory: no respiratory distress, lungs CTAB< purposeful cough produced without distress Abdomen: nondistended Extremities: warm and moving without difficulty Psych: Cooperative Neuro: Alert and oriented Vital Signs: Vital Signs: Last Vital Signs Temp 98.2 F 11/02/25 16:08 Pulse 95 11/02/25 16:08 Resp 16 11/02/25 16:08 BP 142/85 H 11/02/25 16:08 Pulse Ox 96 11/02/25 16:08 O2 Del Method Room Air 11/02/25 16:08 BMI result Body Mass Index 26.1 Medical Decision Making Medical Decision Making MDM Narrative: Young adult with acute viral upper-respiratory illness; influenza A confirmed. COVID-19 and strep tests negative. Chest X-ray not indicated due to absence of abnormal vital signs or focal lung findings. Patient is afebrile and clinically stable. Problem #1: Influenza A infection Assessment: Symptom onset 2 days ago with positive rapid influenza A test; currently afebrile and clinically stable. COVID-19 and strep tests negative. No abnormal exam findings. Chest X-ray not indicated. Plan: Prescribed oseltamivir (Tamiflu). Symptomatic care: continue ibuprofen or acetaminophen (Tylenol) for pain/fever, encourage rest and hydration. Patient informed of high contagion risk. Provided work note for time off as discussed. Problem #2: Acute pharyngitis Assessment: Sore throat with anterior cervical lymphadenopathy; strep test negative. Plan: Continue supportive care as above. Follow-up: Patient discharged home in stable condition with instructions for supportive care and return precautions. Katherine presented with acute upper respiratory symptoms including sore throat, cough, body aches, and headache. Rapid influenza A test was positive, while COVID-19 and strep tests were negative. Physical exam was unremarkable, with no abnormal vital signs or focal lung findings, so chest X-ray was not indicated. Oseltamivir (Tamiflu) was prescribed for confirmed influenza A, and supportive care measures were recommended. Patient was discharged in stable condition. Differential Diagnosis Differential Diagnoses: The differential diagnosis associated with the presentation includes DDX: AOM (normal), AOE (normal) bacterial sinusitis (0/3), strep/ tonsillitis (NURSING HOME score is 0, strep test negative), bronchitis/pneumonia (lungs clear, no fever improved sxs, CXR not indicated, PO abx/steroids not indicated) Admission/Observation Consideration of admission/observation: Escalation of care including admission/observation considered Lab Data [facility] Lab Attestation statement: I reviewed the patient's lab results. Labs: Lab Results 11/02/25 Range/Units 14:46 Influenza Type A (PCR) POSITIVE A (Negative) Influenza Type B (PCR) NEGATIVE (Negative) RSV RNA Qual (PCR) NEGATIVE (Negative) SARS-CoV-2 RNA (RT-PCR) NEGATIVE (Negative) S. pyogenes GrpA TEMO Negative (Negative) Tests considered The following testing was considered but not selected: See [facility] Prescription Management I considered prescription management with: Antiviral Social Determinants Patient?s care significantly limited by Social Determinants of Health including: Other Social Determinant of Health Discharge Plan Discharge Clinical Impression: Influenza A, Fever Patient Disposition: Home, Self-Care Instructions: Influenza (DC) Additional Instructions: You were seen in the emergency room for your fever, cough, congestion, and muscle aches.? Your exam was reassuring. Your flu swab was positive.? Rest, stay well hydrated. Take Tylenol and/or Motrin as needed for fever or muscle aches. Please be re-evaluated if you are not starting to feel better or if still having fevers after 5-7 days of illness You should avoid crowds, public places, school, hotels, elderly, infants, or people with compromised immune systems until 24 hours after your fevers stop and your symptoms are improved. Go to the ED if you develop a severe headache, neck stiffness, intractable vomiting, trouble breathing, shortness of breath, or any other new, concerning symptoms.? Prescriptions: New oseltamivir [Tamiflu] 75 mg capsule 75 mg PO BID 5 Days Qty: 10 0RF No Action levofloxacin 500 mg tablet 500 mg PO Q24H Qty: 10 0RF ferrous sulfate 325 mg (65 mg iron) tablet 325 mg PO .once a week 90 Days Qty: 12 3RF epinephrine [EpiPen 2-Jas] 0.3 mg/0.3 mL auto-injector 0.3 mg IM Q4H PRN (Reason: anaphylaxis) Qty: 2 0RF Referrals: Fannie Raya MD [Primary Care Provider, Internal Medicine] Stand Alone Forms: Work/School Release Interventions: ED Discharge Assessment Last Done: 11/02/25 16:08 Discharge Date/Time: 11/02/25 16:09 Print Language: Yakut
[2025-11-02 15:22] LABS: IDNOW Serial# 58CA691E; Strep A Nucleic Acid Negative (Negative)
[2025-11-02 15:36] LABS: Resp Syncy Virus RNA Qual PCR NEGATIVE (Negative); SARS COV2 PCR INHOUSE NEGATIVE (Negative)
[2025-11-02 16:08] VITALS: BP 142/85; PULSE 95; RESP 16; TEMP 36.8; O2SAT 96
== END 2025-11-02 16:09 | disposition home or self-care (01) ==
PROVIDERS: Physician Assistant Medical; Emergency Provider Emergency Medicine; PCP Internal Medicine
DX: J10.1 Influenza due to other identified influenza virus with other respiratory manifestations (principal); R05.9 Cough, unspecified; R51.9 Headache, unspecified; R50.9 Fever, unspecified; Z03.818 Encounter for observation for suspected exposure to other biological agents ruled out
CPT/HCPCS: 87637; 87651; 99282; 99283